=== PATIENT | male | born 1980 | race Asian ===

== ENCOUNTER 2017-08-19 14:42 | Emergency (ER) | payer OTHER ==
[2017-08-19 17:30] LABS: Basophils # (auto) 0 uL; Basophils % (auto) 0.7 % (0.0-2.0); Eosinophils # (auto) 0.2 uL; Eosinophils % (auto) 3.3 % (0.0-7.0); Hemoglobin 15.7 g/dL (13.5-17.5); Lymphocytes % (auto) 14.4 % (10.0-50.0); Mean Corpuscular Hemoglobin 31.5 pg (28.0-32.0); Mean Corpuscular Volume 92.5 fL (80.0-100.0); Monocytes # (auto) 0.3 uL; Monocytes % (auto) 4.9 % (0.0-12.0); Neutrophils # (auto) 5.1 uL; Neutrophils % (auto) 76.7 % (37.0-80.0); Platelet Count (auto) 187 10^3/uL (140-450); Red Blood Cells 4.97 10^6/uL (4.5-5.90); Red Cell Distribution Width 13.3 % (11.8-14.3); White Blood Cell 6.7 10^3/uL (4.4-10.8)
[2017-08-19 17:56] LABS: Anion Gap 6 (5-15); Blood Urea Nitrogen 29 mg/dL (7-18); Calcium 8.2 mg/dL (8.5-10.1); Carbon Dioxide 30 mmol/L (21-32); Chloride 105 mmol/L (98-107); GFR African American 67 mL/min; GFR Non-African American 55 mL/min; Glucose 120 mg/dL (74-106); Potassium 3.8 mmol/L (3.5-5.1); Sodium 141 mmol/L (136-145)
[2017-08-19 18:32] VITALS: BP 176/130
== END 2017-08-19 18:43 | disposition home or self-care (01) ==
LOC: ER 14:42
DX: R07.89 Other chest pain (principal); I10 Essential (primary) hypertension; T78.40XA Allergy, unspecified, initial encounter; X58.XXXA Exposure to other specified factors, initial encounter
CPT/HCPCS: 36415; 80048; 84484; 85025; 93005

== ENCOUNTER 2023-03-23 17:42 | Inpatient (IN) | payer OTHER, MEDICAID ==
[~2023-03-23] VITALS: Ht 170.2 cm; Wt 84.5 kg
[2023-03-24 00:45] LABS: Basophils # (auto) 0.1 10 ^3/uL (0-0.2); Basophils % (auto) 1.1 % (0.0-2.0); Eosinophils # (auto) 0.4 10 ^3/uL (0-0.8); Eosinophils % (auto) 4.7 % (0.0-7.0); Hematocrit 30.5 % (41.0-53.0); Hemoglobin 9.8 g/dL (13.5-17.5); Lymphocytes # (auto) 0.9 10 ^3/uL (0.4-5.4); Lymphocytes % (auto) 9.8 % (10.0-50.0); Mean Corpuscular Hemoglobin 31.3 pg (28.0-32.0); Mean Corpuscular Hgb Conc. 32.2 g/dL (32.0-36.0); Mean Corpuscular Volume 97.2 fL (80.0-100.0); Monocytes # (auto) 0.8 10 ^3/uL (0-1.3); Monocytes % (auto) 8.8 % (0.0-12.0); Neutrophils # (auto) 7.1 10 ^3/uL (1.6-8.6); Neutrophils % (auto) 75.6 % (37.0-80.0); Red Blood Cells 3.14 10^6/uL (4.5-5.90); Red Cell Distribution Width 16.6 % (11.8-14.3); White Blood Cell 9.4 10^3/uL (4.4-10.8)
[2023-03-24 01:06] LABS: Alanine Aminotransferase 22 U/L (7-40); Albumin 4.3 g/dL (3.2-4.8); Alkaline Phosphatase 87 U/L (46-116); Anion Gap 19.7 (5-15); Aspartate Aminotransferase 16 U/L (13-40); BUN/Creatinine Ratio 2.9 (10.0-20.0); Blood Urea Nitrogen 74 mg/dL (9-23); Calcium 8.7 mg/dL (8.7-10.4); Carbon Dioxide 20.3 mmol/L (20-30); Chloride 99 mmol/L (98-107); Glucose 113 mg/dL (74-106); Potassium 4.2 mmol/L (3.5-5.1); Sodium 139 mmol/L (136-145)
[2023-03-24 01:07] LABS: Bilirubin, Total < 0.2 mg/dL (0.2-1.0); Total Protein 6.7 g/dL (5.7-8.2)
[2023-03-24] MEDS ORDERED: NITROGLYCERIN 0.4 MG SL TAB SL PRN (03:00)
[2023-03-24] MEDS ORDERED: VANCOMYCIN 1GM/250ML 250 ML IV ONE (03:00)
[2023-03-24] MEDS ORDERED: MORPHINE SULFATE INJ 2 MG/ml SYRG IV PRN (03:00)
[2023-03-24] MEDS ORDERED: VANCOMYCIN PER PHARMACY 0 MG IV SCH (03:00)
[2023-03-24] MEDS ORDERED: PIPERACILLIN-TAZOB 3.375GM 100 ML IV ONE (03:00)
[2023-03-24] MEDS ORDERED: DOCUSATE SOD 100 MG CAP PO PRN (03:00)
[2023-03-24] MEDS ORDERED: cefTRIAXone 1GM/50ML D5W 50 ML IV SCH (04:00)
[2023-03-24 07:01] LABS: Basophils # (auto) 0.1 10 ^3/uL (0-0.2); Basophils % (auto) 0.9 % (0.0-2.0); Eosinophils # (auto) 0.4 10 ^3/uL (0-0.8); Eosinophils % (auto) 4.9 % (0.0-7.0); Hematocrit 27.2 % (41.0-53.0); Hemoglobin 8.8 g/dL (13.5-17.5); Lymphocytes # (auto) 0.8 10 ^3/uL (0.4-5.4); Lymphocytes % (auto) 9.3 % (10.0-50.0); Mean Corpuscular Hemoglobin 31.1 pg (28.0-32.0); Mean Corpuscular Hgb Conc. 32.5 g/dL (32.0-36.0); Mean Corpuscular Volume 95.9 fL (80.0-100.0); Monocytes # (auto) 0.8 10 ^3/uL (0-1.3); Monocytes % (auto) 9.1 % (0.0-12.0); Neutrophils # (auto) 6.4 10 ^3/uL (1.6-8.6); Neutrophils % (auto) 75.8 % (37.0-80.0); Red Blood Cells 2.83 10^6/uL (4.5-5.90); Red Cell Distribution Width 15.8 % (11.8-14.3); White Blood Cell 8.5 10^3/uL (4.4-10.8)
[2023-03-24 07:08] LABS: Alanine Aminotransferase 19 U/L (7-40); Alkaline Phosphatase 80 U/L (46-116); Anion Gap 20.2 (5-15); BUN/Creatinine Ratio 2.9 (10.0-20.0); Blood Urea Nitrogen 76 mg/dL (9-23); Calcium 8.3 mg/dL (8.7-10.4); Carbon Dioxide 19.8 mmol/L (20-30); Chloride 98 mmol/L (98-107); Glucose 136 mg/dL (74-106); Potassium 4.3 mmol/L (3.5-5.1); Sodium 138 mmol/L (136-145)
[2023-03-24 07:09] LABS: Albumin 3.6 g/dL (3.2-4.8); Aspartate Aminotransferase 13 U/L (13-40); Bilirubin, Total < 0.2 mg/dL (0.2-1.0); Total Protein 5.7 g/dL (5.7-8.2)
[2023-03-24] MEDS: SODIUM CHLOR 0.9% PF (SALINE LOCK) 10ML VIAL/SYR IV SCH ×3 (08:37→22:52)
[2023-03-24] MEDS: hydrALAZINE HCL 20 MG/ML VL IV PRN ×3 (08:37→21:14)
[2023-03-24 09:00] VITALS: PULSE 95; RESP 17; O2SAT 96
[2023-03-24] MEDS ORDERED: FAMOTIDINE (10MG/ML) 2ML VL IV SCH (10:00)
[2023-03-24] MEDS: B-COMPLEX W/ C & FOLIC ACID(NEPHROVITE TAB) PO SCH (10:36)
[2023-03-24] MEDS: ASPirin 81 mg TAB PO SCH (10:36)
[2023-03-24] MEDS: NIFEdipine ER 30 MG TAB PO SCH (18:56)
[2023-03-24] MEDS ORDERED: amLODIPine BESYLATE 5 MG TAB PO SCH (22:15)
[2023-03-24] MEDS: LACTULOSE 20Gm/30ML SOLN PO SCH (22:51)
[2023-03-24] MEDS: ONDANSETRON HCL 4 MG/2 ML VIAL IV PRN (22:51)
[2023-03-24] MEDS: CARVEDILOL 3.125 MG TAB PO SCH (22:52)
[2023-03-24 23:30] VITALS: BP 199/121; PULSE 103; RESP 17; O2SAT 94
[2023-03-24] MEDS: ACETAMINOPHEN 325 MG TAB PO PRN (23:49)
[2023-03-25] VITALS (24 sets, daily range): BP systolic 150–190; BP diastolic 22–113; PULSE 88–113; RESP 11–25; TEMP 97.5–99.2; O2SAT 76–98
[2023-03-25] MEDS: PERITONEAL DIALYSIS 2.5% SOLN 2,000 ML IP SCH ×3 (01:28→15:33)
[2023-03-25 05:29] LABS: Alanine Aminotransferase 14 U/L (7-40); Alkaline Phosphatase 69 U/L (46-116); Anion Gap 20.1 (5-15); Aspartate Aminotransferase 9 U/L (13-40); BUN/Creatinine Ratio 3.2 (10.0-20.0); Calcium 8.4 mg/dL (8.7-10.4); Carbon Dioxide 18.9 mmol/L (20-30); Chloride 97 mmol/L (98-107); Glucose 132 mg/dL (74-106); Potassium 4.3 mmol/L (3.5-5.1); Sodium 136 mmol/L (136-145)
[2023-03-25 05:30] LABS: Albumin 3.7 g/dL (3.2-4.8)
[2023-03-25 05:31] LABS: Bilirubin, Total < 0.2 mg/dL (0.2-1.0); Total Protein 5.9 g/dL (5.7-8.2)
[2023-03-25 05:46] LABS: Basophils # (auto) 0.1 10 ^3/uL (0-0.2); Basophils % (auto) 1.2 % (0.0-2.0); Eosinophils # (auto) 0.4 10 ^3/uL (0-0.8); Eosinophils % (auto) 4.9 % (0.0-7.0); Hematocrit 28.7 % (41.0-53.0); Hemoglobin 9.2 g/dL (13.5-17.5); Lymphocytes # (auto) 0.8 10 ^3/uL (0.4-5.4); Lymphocytes % (auto) 9.5 % (10.0-50.0); Mean Corpuscular Hemoglobin 30.9 pg (28.0-32.0); Mean Corpuscular Hgb Conc. 32.2 g/dL (32.0-36.0); Mean Corpuscular Volume 95.8 fL (80.0-100.0); Monocytes # (auto) 0.9 10 ^3/uL (0-1.3); Neutrophils # (auto) 6.3 10 ^3/uL (1.6-8.6); Neutrophils % (auto) 73.4 % (37.0-80.0); Red Blood Cells 2.99 10^6/uL (4.5-5.90); Red Cell Distribution Width 16.1 % (11.8-14.3); White Blood Cell 8.6 10^3/uL (4.4-10.8)
[2023-03-25 07:53] LABS: Blood Urea Nitrogen 84 mg/dL (9-23)
[2023-03-25] MEDS: cefTRIAXone 1GM/50ML D5W 50 ML IV SCH (09:33)
[2023-03-25] MEDS: LACTULOSE 20Gm/30ML SOLN PO SCH ×3 (10:00→21:18)
[2023-03-25] MEDS: B-COMPLEX W/ C & FOLIC ACID(NEPHROVITE TAB) PO SCH (10:25)
[2023-03-25] MEDS: FAMOTIDINE (10MG/ML) 2ML VL IV SCH (10:25)
[2023-03-25] MEDS: SODIUM CHLOR 0.9% PF (SALINE LOCK) 10ML VIAL/SYR IV SCH ×2 (10:26→21:19)
[2023-03-25] MEDS: ASPirin 81 mg TAB PO SCH (10:26)
[2023-03-25] MEDS: CARVEDILOL 3.125 MG TAB PO SCH ×2 (10:26→21:19)
[2023-03-25] MEDS: NIFEdipine ER 30 MG TAB PO SCH (10:26)
[2023-03-25] MEDS: ONDANSETRON HCL 4 MG/2 ML VIAL IV PRN ×3 (11:03→22:57)
[2023-03-25] MEDS: HYDROcodone-ACET 5/325MG TAB PO PRN (11:07)
[2023-03-25] MEDS ORDERED: VANCOMYCIN 500 MG in D5W 5% 100 ML IV ONE (13:00)
[2023-03-25] MEDS: hydrALAZINE HCL 20 MG/ML VL IV PRN ×2 (18:13→21:16)
[2023-03-26] VITALS (24 sets, daily range): BP systolic 74–208; BP diastolic 51–128; PULSE 84–109; RESP 10–26; TEMP 97.4–98.2; O2SAT 90–98
[2023-03-26] MEDS: ACETAMINOPHEN 325 MG TAB PO PRN ×2 (00:38→14:58)
[2023-03-26] MEDS: PERITONEAL DIALYSIS 2.5% SOLN 2,000 ML IP SCH ×4 (00:47→23:06)
[2023-03-26] MEDS: cloNIDine HCL 0.1 MG TAB PO PRN ×2 (02:28→15:12)
[2023-03-26] MEDS: hydrALAZINE HCL 20 MG/ML VL IV PRN ×2 (03:08→18:16)
[2023-03-26] MEDS: SODIUM CHLOR 0.9% PF (SALINE LOCK) 10ML VIAL/SYR IV SCH ×3 (06:27→21:14)
[2023-03-26] MEDS: cefTRIAXone 1GM/50ML D5W 50 ML IV SCH (08:15)
[2023-03-26] MEDS: LACTULOSE 20Gm/30ML SOLN PO SCH ×2 (09:19→21:12)
[2023-03-26] MEDS: ASPirin 81 mg TAB PO SCH (09:19)
[2023-03-26] MEDS: B-COMPLEX W/ C & FOLIC ACID(NEPHROVITE TAB) PO SCH (09:19)
[2023-03-26] MEDS: NIFEdipine ER 30 MG TAB PO SCH ×2 (09:20→13:35)
[2023-03-26] MEDS: CARVEDILOL 3.125 MG TAB PO SCH ×2 (09:20→21:14)
[2023-03-26] MEDS: ONDANSETRON HCL 4 MG/2 ML VIAL IV PRN ×2 (10:47→14:58)
[2023-03-26] MEDS: HYDROcodone-ACET 5/325MG TAB PO PRN ×2 (17:03→21:13)
[2023-03-27] VITALS (7 sets, daily range): BP systolic 137–167; BP diastolic 87–114; PULSE 96–112; RESP 15–18; TEMP 98–98.7; O2SAT 92–100
[2023-03-27] MEDS: PERITONEAL DIALYSIS 2.5% SOLN 2,000 ML IP SCH ×4 (04:56→21:03)
[2023-03-27] MEDS: B-COMPLEX W/ C & FOLIC ACID(NEPHROVITE TAB) PO SCH (08:21)
[2023-03-27] MEDS: HYDROcodone-ACET 5/325MG TAB PO PRN (08:21)
[2023-03-27] MEDS: NIFEdipine ER 30 MG TAB PO SCH (08:22)
[2023-03-27] MEDS: CARVEDILOL 3.125 MG TAB PO SCH ×2 (08:22→22:39)
[2023-03-27] MEDS: ASPirin 81 mg TAB PO SCH (08:22)
[2023-03-27] MEDS: FAMOTIDINE (10MG/ML) 2ML VL IV SCH (08:23)
[2023-03-27] MEDS: cefTRIAXone 1GM/50ML D5W 50 ML IV SCH (08:23)
[2023-03-27] MEDS: ONDANSETRON HCL 4 MG/2 ML VIAL IV PRN (08:23)
[2023-03-27] MEDS: LACTULOSE 20Gm/30ML SOLN PO SCH ×2 (10:00→22:36)
[2023-03-27] MEDS ORDERED: PROPOFOL 10 MG/ML 20 ML IV ONE ×3 (10:16→12:57)
[2023-03-27 10:38] LABS: Basophils # (auto) 0.1 10 ^3/uL (0-0.2); Basophils % (auto) 1.4 % (0.0-2.0); Eosinophils # (auto) 0.3 10 ^3/uL (0-0.8); Eosinophils % (auto) 5.3 % (0.0-7.0); Hematocrit 29.6 % (41.0-53.0); Hemoglobin 9.7 g/dL (13.5-17.5); Lymphocytes # (auto) 0.8 10 ^3/uL (0.4-5.4); Lymphocytes % (auto) 13.9 % (10.0-50.0); Mean Corpuscular Hemoglobin 31.3 pg (28.0-32.0); Mean Corpuscular Hgb Conc. 32.7 g/dL (32.0-36.0); Mean Corpuscular Volume 95.7 fL (80.0-100.0); Monocytes # (auto) 0.6 10 ^3/uL (0-1.3); Monocytes % (auto) 10.5 % (0.0-12.0); Neutrophils # (auto) 4.2 10 ^3/uL (1.6-8.6); Neutrophils % (auto) 68.9 % (37.0-80.0); Nucleated Red Blood Cells % 0.1 %; Red Blood Cells 3.09 10^6/uL (4.5-5.90); Red Cell Distribution Width 15.9 % (11.8-14.3); White Blood Cell 6.1 10^3/uL (4.4-10.8)
[2023-03-27 10:56] LABS: Alanine Aminotransferase 22 U/L (7-40); Albumin 3.6 g/dL (3.2-4.8); Alkaline Phosphatase 70 U/L (46-116); Anion Gap 17.3 (5-15); Aspartate Aminotransferase 14 U/L (13-40); BUN/Creatinine Ratio 3.2 (10.0-20.0); Calcium 8.7 mg/dL (8.5-10.1); Carbon Dioxide 21.7 mmol/L (20-30); Chloride 97 mmol/L (98-107); Glucose 141 mg/dL (74-106); Potassium 3.8 mmol/L (3.5-5.1); Sodium 136 mmol/L (136-145)
[2023-03-27 10:57] LABS: Bilirubin, Total < 0.2 mg/dL (0.2-1.0); Total Protein 5.6 g/dL (5.7-8.2)
[2023-03-27 11:07] LABS: Blood Urea Nitrogen 80 mg/dL (9-23)
[2023-03-27 11:43] LABS: INR 0.98 (0.9-1.15); Partial Thromboplastin Time 28.6 SEC (24.5-34.5); Prothrombin Time 10.3 sec (9.3-11.8)
[2023-03-27] MEDS ORDERED: MIDAZOLAM HCL 2MG/2ML 2ml VIAL (1mg/ml) ONE (12:08)
[2023-03-27] MEDS ORDERED: fentaNYL CITRATE 100 MCG/2 ML VL ONE (12:08)
[2023-03-27] MEDS ORDERED: ONDANSETRON HCL 4 MG/2 ML VIAL ONE (12:11)
[2023-03-27] MEDS ORDERED: LIDOCAINE 2% (LOCAL ANESTH.) PF 5ml SDV ONE (12:11)
[2023-03-27] MEDS ORDERED: ceFAZolin 1GM VL ONE (12:44)
[2023-03-27] MEDS ORDERED: HYDROmorphone HCL 2 MG/ML VL/or syr IV PRN (13:30)
[2023-03-27] MEDS ORDERED: ONDANSETRON HCL 4 MG/2 ML VIAL IV PRN (13:30)
[2023-03-27] MEDS: SODIUM CHLOR 0.9% PF (SALINE LOCK) 10ML VIAL/SYR IV SCH ×2 (14:00→22:00)
[2023-03-27] MEDS: cloNIDine HCL 0.1 MG TAB PO PRN (15:58)
[2023-03-27] MEDS: hydrALAZINE HCL 20 MG/ML VL IV PRN ×2 (17:41→18:06)
[2023-03-28] VITALS (8 sets, daily range): BP systolic 131–157; BP diastolic 80–105; PULSE 76–113; RESP 16–21; TEMP 97.5–98.5; O2SAT 92–95
[2023-03-28] MEDS: PERITONEAL DIALYSIS 2.5% SOLN 2,000 ML IP SCH ×4 (03:04→21:43)
[2023-03-28] MEDS: SODIUM CHLOR 0.9% PF (SALINE LOCK) 10ML VIAL/SYR IV SCH ×3 (06:07→21:50)
[2023-03-28] MEDS: cefTRIAXone 1GM/50ML D5W 50 ML IV SCH (09:10)
[2023-03-28] MEDS: LACTULOSE 20Gm/30ML SOLN PO SCH ×2 (09:15→22:00)
[2023-03-28] MEDS: ASPirin 81 mg TAB PO SCH (09:15)
[2023-03-28] MEDS: B-COMPLEX W/ C & FOLIC ACID(NEPHROVITE TAB) PO SCH (09:15)
[2023-03-28] MEDS: NIFEdipine ER 30 MG TAB PO SCH (09:16)
[2023-03-28] MEDS: CARVEDILOL 3.125 MG TAB PO SCH ×2 (09:16→21:54)
[2023-03-28] MEDS: hydrALAZINE HCL 20 MG/ML VL IV PRN (12:12)
[2023-03-29] MEDS: PERITONEAL DIALYSIS 2.5% SOLN 2,000 ML IP SCH ×4 (04:55→23:05)
[2023-03-29] MEDS: hydrALAZINE HCL 20 MG/ML VL IV PRN ×2 (05:31→12:29)
[2023-03-29] MEDS: SODIUM CHLOR 0.9% PF (SALINE LOCK) 10ML VIAL/SYR IV SCH ×3 (05:35→22:00)
[2023-03-29 08:00] VITALS: PULSE 110; PULSE 114; RESP 20; O2SAT 98
[2023-03-29 09:00] VITALS: BP 154/116; PULSE 114; RESP 20; TEMP 98.7; O2SAT 98
[2023-03-29] MEDS: cefTRIAXone 1GM/50ML D5W 50 ML IV SCH (09:03)
[2023-03-29] MEDS: FAMOTIDINE (10MG/ML) 2ML VL IV SCH (09:06)
[2023-03-29] MEDS: NIFEdipine ER 30 MG TAB PO SCH (09:08)
[2023-03-29] MEDS: ASPirin 81 mg TAB PO SCH (09:09)
[2023-03-29] MEDS: CARVEDILOL 3.125 MG TAB PO SCH ×2 (09:10→22:39)
[2023-03-29] MEDS: LACTULOSE 20Gm/30ML SOLN PO SCH ×2 (09:10→22:38)
[2023-03-29] MEDS: B-COMPLEX W/ C & FOLIC ACID(NEPHROVITE TAB) PO SCH (09:10)
[2023-03-29] MEDS: cloNIDine HCL 0.1 MG TAB PO PRN (11:00)
[2023-03-29 13:00] VITALS: BP 176/129; PULSE 101; RESP 20; TEMP 97.5; O2SAT 97
[2023-03-29 16:45] VITALS: BP 111/87; PULSE 108; RESP 20; TEMP 98.8; O2SAT 96
[2023-03-29 20:00] VITALS: PULSE 122; PULSE 97; RESP 14; O2SAT 95
[2023-03-29 22:00] VITALS: BP 156/109; PULSE 97; RESP 14; TEMP 98; O2SAT 95
[2023-03-29] MEDS ORDERED: VANCOMYCIN 500 MG in D5W 5% 100 ML IV ONE (22:00)
[2023-03-30] MEDS: cloNIDine HCL 0.1 MG TAB PO PRN ×2 (00:26→12:18)
[2023-03-30] MEDS: PERITONEAL DIALYSIS 2.5% SOLN 2,000 ML IP SCH ×2 (04:53→11:00)
[2023-03-30 05:00] VITALS: BP 138/104; PULSE 101; RESP 14; TEMP 98.1; O2SAT 97
[2023-03-30] MEDS: SODIUM CHLOR 0.9% PF (SALINE LOCK) 10ML VIAL/SYR IV SCH ×2 (06:00→15:50)
[2023-03-30 07:25] LABS: Basophils # (auto) 0.1 10 ^3/uL (0-0.2); Basophils % (auto) 1.4 % (0.0-2.0); Eosinophils # (auto) 0.3 10 ^3/uL (0-0.8); Eosinophils % (auto) 6.1 % (0.0-7.0); Hematocrit 31.7 % (41.0-53.0); Hemoglobin 10.4 g/dL (13.5-17.5); Lymphocytes # (auto) 0.9 10 ^3/uL (0.4-5.4); Lymphocytes % (auto) 15.4 % (10.0-50.0); Mean Corpuscular Hgb Conc. 32.9 g/dL (32.0-36.0); Mean Corpuscular Volume 94.4 fL (80.0-100.0); Monocytes # (auto) 0.7 10 ^3/uL (0-1.3); Monocytes % (auto) 12.4 % (0.0-12.0); Neutrophils # (auto) 3.6 10 ^3/uL (1.6-8.6); Neutrophils % (auto) 64.7 % (37.0-80.0); Red Blood Cells 3.36 10^6/uL (4.5-5.90); White Blood Cell 5.5 10^3/uL (4.4-10.8)
[2023-03-30 08:00] VITALS: PULSE 108
[2023-03-30 08:01] LABS: Chloride 93 mmol/L (98-107); Sodium 132 mmol/L (136-145)
[2023-03-30 08:02] LABS: Anion Gap 16.8 (5-15); Calcium 8.9 mg/dL (8.7-10.4); Carbon Dioxide 22.2 mmol/L (20-30)
[2023-03-30 08:07] LABS: BUN/Creatinine Ratio 3.5 (10.0-20.0); Blood Urea Nitrogen 78 mg/dL (9-23); Glucose 120 mg/dL (74-106)
[2023-03-30] MEDS: ASPirin 81 mg TAB PO SCH (08:50)
[2023-03-30] MEDS: B-COMPLEX W/ C & FOLIC ACID(NEPHROVITE TAB) PO SCH (08:51)
[2023-03-30] MEDS: NIFEdipine ER 30 MG TAB PO SCH (08:51)
[2023-03-30] MEDS: CARVEDILOL 3.125 MG TAB PO SCH (08:58)
[2023-03-30] MEDS: LACTULOSE 20Gm/30ML SOLN PO SCH (08:58)
[2023-03-30 09:00] VITALS: BP 145/103; PULSE 108; RESP 18; TEMP 98.5; O2SAT 98
[2023-03-30] MEDS: cefTRIAXone 1GM/50ML D5W 50 ML IV SCH (09:13)
[2023-03-30] MEDS ORDERED: HYDR-4902 PO (10:56)
[2023-03-30] MEDS ORDERED: CLIN300C70 PO (10:56)
[2023-03-30 14:33] VITALS: BP 145/103; PULSE 108; RESP 18; TEMP 98.5; O2SAT 98
== END 2023-03-30 16:31 | disposition home or self-care (01) | DRG 393 ==
LOC: ER 17:42 → TELE 03-24 03:03 → DOU IN ICU 03-24 23:21 → TELE-WESTW 03-26 14:46
PROVIDERS: ADMIT Nurse Practitioner Family; ATTEND Family Medicine
PROC: 0Y910ZZ Drainage of Left Buttock, Open Approach (ICD-10-PCS; principal; 2023-03-27 12:12)
DX: K61.2 Anorectal abscess (principal); N18.6 End stage renal disease; L03.317 Cellulitis of buttock; I31.39 Other pericardial effusion (noninflammatory); L02.215 Cutaneous abscess of perineum; I12.0 Hypertensive chronic kidney disease with stage 5 chronic kidney disease or end stage renal disease; L02.31 Cutaneous abscess of buttock; D63.1 Anemia in chronic kidney disease; E11.22 Type 2 diabetes mellitus with diabetic chronic kidney disease; N28.1 Cyst of kidney, acquired; B95.62 Methicillin resistant Staphylococcus aureus infection as the cause of diseases classified elsewhere; K59.00 Constipation, unspecified; I25.10 Atherosclerotic heart disease of native coronary artery without angina pectoris; Z86.14 Personal history of Methicillin resistant Staphylococcus aureus infection; Z88.8 Allergy status to other drugs, medicaments and biological substances; Z99.2 Dependence on renal dialysis
CPT/HCPCS: 36415; 74176; 76775; 76856; 80048; 80053; 80202; 85025; 85610; 85730; 86850; 86900; 86901; 87070; 87075; 87076; 87077; 87081; 87186; 87205; 93005; 96365; 96367; 96375; G0378; J0690; J0696; J2001; J2250; J2405; J2704; J3490; J7060

== ENCOUNTER 2023-04-01 13:34 | Emergency (ER) | payer OTHER, MEDICAID ==
[~2023-04-01] VITALS: Ht 170.2 cm; Wt 75.2 kg
[~2023-04-01 13:34] MED LIST: CLIN300C70 PO; HYDR-4902 PO
[2023-04-01 14:06] VITALS: BP 173/141; PULSE 101; RESP 18; O2SAT 96
[2023-04-01 14:55] LABS: Basophils # (auto) 0.1 10 ^3/uL (0-0.2); Basophils % (auto) 1.2 % (0.0-2.0); Eosinophils # (auto) 0.4 10 ^3/uL (0-0.8); Eosinophils % (auto) 5.4 % (0.0-7.0); Hematocrit 29.4 % (41.0-53.0); Hemoglobin 9.5 g/dL (13.5-17.5); Lymphocytes # (auto) 0.9 10 ^3/uL (0.4-5.4); Lymphocytes % (auto) 13.4 % (10.0-50.0); Mean Corpuscular Hemoglobin 30.4 pg (28.0-32.0); Mean Corpuscular Hgb Conc. 32.4 g/dL (32.0-36.0); Mean Corpuscular Volume 93.8 fL (80.0-100.0); Monocytes # (auto) 0.7 10 ^3/uL (0-1.3); Monocytes % (auto) 10.1 % (0.0-12.0); Neutrophils # (auto) 4.6 10 ^3/uL (1.6-8.6); Neutrophils % (auto) 69.9 % (37.0-80.0); Red Blood Cells 3.14 10^6/uL (4.5-5.90); Red Cell Distribution Width 15.8 % (11.8-14.3); White Blood Cell 6.6 10^3/uL (4.4-10.8)
[2023-04-01 15:17] LABS: Alanine Aminotransferase 31 U/L (7-40); Albumin 3.8 g/dL (3.2-4.8); Alkaline Phosphatase 79 U/L (46-116); Anion Gap 17.2 (5-15); Aspartate Aminotransferase 20 U/L (13-40); BUN/Creatinine Ratio 4.6 (10.0-20.0); Bilirubin, Total < 0.2 mg/dL (0.2-1.0); Calcium 8.7 mg/dL (8.5-10.1); Carbon Dioxide 22.8 mmol/L (20-30); Chloride 96 mmol/L (98-107); Glucose 112 mg/dL (74-106); Potassium 4.4 mmol/L (3.5-5.1); Sodium 136 mmol/L (136-145)
[2023-04-01 15:29] LABS: Blood Urea Nitrogen 100 mg/dL (9-23)
== END 2023-04-01 16:41 | disposition left against medical advice (07) ==
LOC: ER 13:34
DX: N18.6 End stage renal disease (principal); Z88.6 Allergy status to analgesic agent
CPT/HCPCS: 36415; 80053; 84484; 85025; 93005

== ENCOUNTER 2023-05-23 12:07 | Inpatient (IN) | payer OTHER, MEDICAID ==
[~2023-05-23] VITALS: Ht 170.2 cm; Wt 86.9 kg
[2023-05-23 17:38] LABS: Basophils # (auto) 0.1 10 ^3/uL (0-0.2); Hemoglobin 7.3 g/dL (13.5-17.5); Lymphocytes # (auto) 0.8 10 ^3/uL (0.4-5.4); Lymphocytes % (auto) 15.4 % (10.0-50.0); Mean Corpuscular Hemoglobin 30.9 pg (28.0-32.0); Mean Corpuscular Hgb Conc. 33.1 g/dL (32.0-36.0); Neutrophils # (auto) 3.4 10 ^3/uL (1.6-8.6); White Blood Cell 5.5 10^3/uL (4.4-10.8)
[2023-05-23 17:39] LABS: Eosinophils # (auto) 0.7 10 ^3/uL (0-0.8); Eosinophils % (auto) 12.7 % (0.0-7.0); Mean Corpuscular Volume 93.5 fL (80.0-100.0); Monocytes # (auto) 0.5 10 ^3/uL (0-1.3); Monocytes % (auto) 8.6 % (0.0-12.0); Neutrophils % (auto) 62.3 % (37.0-80.0); Nucleated Red Blood Cells % 0.1 %; Red Blood Cells 2.36 10^6/uL (4.5-5.90); Red Cell Distribution Width 17.2 % (11.8-14.3)
[2023-05-23 17:47] LABS: Alanine Aminotransferase 23 U/L (7-40); Albumin 4.1 g/dL (3.2-4.8); Alkaline Phosphatase 78 U/L (46-116); Anion Gap 18 (5-15); Aspartate Aminotransferase 21 U/L (13-40); BUN/Creatinine Ratio 3.7 (10.0-20.0); Bilirubin, Total 0.2 mg/dL (0.2-1.0); Calcium 8.8 mg/dL (8.5-10.1); Carbon Dioxide 22 mmol/L (20-30); Chloride 100 mmol/L (98-107); Glucose 93 mg/dL (74-106); Potassium 3.3 mmol/L (3.5-5.1); Sodium 140 mmol/L (136-145)
[2023-05-23 17:48] LABS: Total Protein 6.4 g/dL (5.7-8.2)
[2023-05-23 18:05] LABS: Blood Urea Nitrogen 82 mg/dL (9-23)
[2023-05-23] MEDS ORDERED: SODIUM CHLORIDE 0.9% 500 ML IV ONE (18:45)
[2023-05-23 20:00] LABS: Magnesium 2.5 mg/dL (1.6-2.6)
[2023-05-23 21:52] VITALS: PULSE 99; RESP 20; O2SAT 90
[2023-05-23] MEDS ORDERED: ACETAMINOPHEN 325 MG TAB PO PRN (22:00)
[2023-05-23] MEDS ORDERED: TEMAZEPAM 15 MG CAP PO PRN (22:00)
[2023-05-23] MEDS ORDERED: NITROGLYCERIN 0.4 MG SL TAB SL PRN (22:00)
[2023-05-23] MEDS ORDERED: MORPHINE SULFATE INJ 2 MG/ml SYRG IV PRN (22:00)
[2023-05-23] MEDS: CARVEDILOL 12.5 MG TAB PO SCH (22:00)
[2023-05-23] MEDS: ATORVASTATIN 20 MG TAB PO SCH (23:17)
[2023-05-24] VITALS (7 sets, daily range): BP systolic 185–200; BP diastolic 82–126; PULSE 89–95; RESP 18–20; TEMP 97.9–98.3; O2SAT 96–99
[2023-05-24] MEDS: hydrALAZINE HCL 20 MG/ML VL IV PRN ×2 (02:43→07:54)
[2023-05-24] MEDS ORDERED: dilTIAZem 25 MG/5 ML VIAL IV ONE (04:45)
[2023-05-24 05:55] LABS: Basophils # (auto) 0 10 ^3/uL (0-0.2); Lymphocytes # (auto) 0.8 10 ^3/uL (0.4-5.4); Monocytes # (auto) 0.5 10 ^3/uL (0-1.3)
[2023-05-24 05:59] LABS: Basophils % (auto) 0.7 % (0.0-2.0); Eosinophils # (auto) 0.7 10 ^3/uL (0-0.8); Eosinophils % (auto) 11.8 % (0.0-7.0); Hematocrit 20.1 % (41.0-53.0); Lymphocytes % (auto) 12.7 % (10.0-50.0); Mean Corpuscular Hemoglobin 31.6 pg (28.0-32.0); Mean Corpuscular Hgb Conc. 33.8 g/dL (32.0-36.0); Mean Corpuscular Volume 93.6 fL (80.0-100.0); Monocytes % (auto) 7.7 % (0.0-12.0); Neutrophils # (auto) 4.2 10 ^3/uL (1.6-8.6); Neutrophils % (auto) 67.1 % (37.0-80.0); Red Blood Cells 2.15 10^6/uL (4.5-5.90); Red Cell Distribution Width 16.8 % (11.8-14.3); White Blood Cell 6.2 10^3/uL (4.4-10.8)
[2023-05-24 06:03] LABS: Alanine Aminotransferase 20 U/L (7-40); Albumin 3.6 g/dL (3.2-4.8); Alkaline Phosphatase 71 U/L (46-116); Anion Gap 22 (5-15); Aspartate Aminotransferase 17 U/L (13-40); BUN/Creatinine Ratio 3.7 (10.0-20.0); Bilirubin, Total 0.2 mg/dL (0.2-1.0); Calcium 8.2 mg/dL (8.7-10.4); Carbon Dioxide 19 mmol/L (20-30); Chloride 99 mmol/L (98-107); Glucose 81 mg/dL (74-106); Sodium 140 mmol/L (136-145); Total Protein 5.7 g/dL (5.7-8.2)
[2023-05-24 06:28] LABS: Blood Urea Nitrogen 87 mg/dL (9-23)
[2023-05-24 07:05] LABS: Hemoglobin 6.8 g/dL (13.5-17.5)
[2023-05-24] MEDS: ONDANSETRON HCL 4 MG/2 ML VIAL IV PRN (07:53)
[2023-05-24 08:12] LABS: INR 0.98 (0.9-1.15); Partial Thromboplastin Time 27.1 SEC (24.5-34.5); Prothrombin Time 10.3 sec (9.3-11.8)
[2023-05-24] MEDS ORDERED: LIDOCAINE 2% JELLY 11ml (GLYDO) UR ONE (08:15)
[2023-05-24] MEDS: SEVELAMER 800 MG TAB PO SCH ×3 (08:29→23:06)
[2023-05-24] MEDS: CARVEDILOL 12.5 MG TAB PO SCH (10:00)
[2023-05-24] MEDS ORDERED: NIFEdipine ER 30 MG TAB PO SCH (10:00)
[2023-05-24 11:54] LABS: Urine Bacteria FEW /hpf (None Seen); Urine Blood 3+ /uL (Negative); Urine Clarity HAZY (Clear); Urine Color Straw (Yellow); Urine Protein, UAD 3+ (Negative); Urine Specific Gravity 1.012 (1.001-1.035); Urine Urobilinogen Normal (Negative); Urine WBC 123 /hpf (0 - 3); Urine pH 6.5 (5.0-8.0)
[2023-05-24] MEDS: cloNIDine HCL 0.1 MG TAB PO PRN (12:14)
[2023-05-24] MEDS: NIFEdipine ER 30 MG TAB PO SCH (13:52)
[2023-05-24] MEDS: hydrALAZINE HCL 10 MG TAB PO SCH ×2 (14:00→23:06)
[2023-05-24] MEDS: ATORVASTATIN 20 MG TAB PO SCH (23:05)
[2023-05-25] MEDS: hydrALAZINE HCL 20 MG/ML VL IV PRN (03:38)
[2023-05-25 05:41] VITALS: PULSE 97; RESP 20; O2SAT 94
[2023-05-25 05:42] VITALS: BP 163/91; PULSE 82; TEMP 98.6
[2023-05-25 05:50] LABS: Rapid Influenza A Negative (Negative); Rapid Influenza B Negative (Negative)
[2023-05-25] MEDS: hydrALAZINE HCL 10 MG TAB PO SCH (05:59)
[2023-05-25] MEDS: SEVELAMER 800 MG TAB PO SCH ×4 (08:00→18:07)
[2023-05-25 08:30] VITALS: PULSE 106; PULSE 98; RESP 18; O2SAT 98
[2023-05-25] MEDS ORDERED: SENN-105 PO (08:30)
[2023-05-25] MEDS ORDERED: SEVE800T10 PO (08:30)
[2023-05-25] MEDS ORDERED: FLUT50SP NAS (08:30)
[2023-05-25] MEDS ORDERED: LANT10002 PO (08:30)
[2023-05-25] MEDS ORDERED: COLC1CAP (08:30)
[2023-05-25] MEDS ORDERED: LOSA50TA46 PO (08:30)
[2023-05-25 09:04] LABS: Hepatitis B Surface Antigen Negative (Negative)
[2023-05-25 09:25] LABS: Hepatitis C Antibody Negative (Negative)
[2023-05-25] MEDS ORDERED: BUMETANIDE 2.5mg/10ml (0.25 mg/ml) INJ IV ONE (10:00)
[2023-05-25] MEDS ORDERED: NIFEdipine ER 30 MG TAB PO SCH (10:00)
[2023-05-25] MEDS ORDERED: hydrALAZINE HCL 25 MG TAB PO ONE (10:15)
[2023-05-25] MEDS: LOSARTAN POTASSIUM 50 MG TAB PO SCH (10:57)
[2023-05-25] MEDS: NIFEdipine ER 30 MG TAB PO SCH (10:59)
[2023-05-25 12:43] VITALS: BP 176/106; PULSE 100; RESP 20; TEMP 98.3; O2SAT 92
[2023-05-25] MEDS ORDERED: POTASSIUM CHL 20 Meq TABLET PO ONE (12:45)
[2023-05-25] MEDS: PERITONEAL DIALYSIS 2.5% SOLN 2,000 ML IP SCH ×2 (16:45→17:43)
[2023-05-25 20:00] VITALS: PULSE 95; PULSE 96; RESP 18; O2SAT 98
[2023-05-25] MEDS: ATORVASTATIN 20 MG TAB PO SCH (21:42)
[2023-05-25] MEDS: LACTULOSE 20Gm/30ML SOLN PO SCH (21:42)
[2023-05-25] MEDS: cloNIDine HCL 0.1 MG TAB PO PRN (21:44)
[2023-05-25] MEDS: hydrALAZINE HCL 25 MG TAB PO SCH (21:45)
[2023-05-25 22:00] VITALS: BP 179/100; PULSE 95; RESP 18; TEMP 98.3; O2SAT 97
[2023-05-26] VITALS (7 sets, daily range): BP systolic 111–173; BP diastolic 61–99; PULSE 84–106; RESP 16–20; TEMP 97.5–98.8; O2SAT 92–98
[2023-05-26 00:47] LABS: Basophils # (auto) 0 10 ^3/uL (0-0.2); Eosinophils % (auto) 14.2 % (0.0-7.0); Hemoglobin 7.6 g/dL (13.5-17.5); Lymphocytes # (auto) 0.6 10 ^3/uL (0.4-5.4)
[2023-05-26 00:49] LABS: Basophils % (auto) 0.7 % (0.0-2.0); Eosinophils # (auto) 0.7 10 ^3/uL (0-0.8); Hematocrit 22.6 % (41.0-53.0); Lymphocytes % (auto) 11.8 % (10.0-50.0); Mean Corpuscular Hemoglobin 30.8 pg (28.0-32.0); Mean Corpuscular Hgb Conc. 33.7 g/dL (32.0-36.0); Mean Corpuscular Volume 91.3 fL (80.0-100.0); Monocytes # (auto) 0.4 10 ^3/uL (0-1.3); Monocytes % (auto) 8.2 % (0.0-12.0); Neutrophils # (auto) 3.4 10 ^3/uL (1.6-8.6); Neutrophils % (auto) 65.1 % (37.0-80.0); Nucleated Red Blood Cells % 0.1 %; Red Blood Cells 2.48 10^6/uL (4.5-5.90); Red Cell Distribution Width 16.6 % (11.8-14.3); White Blood Cell 5.3 10^3/uL (4.4-10.8)
[2023-05-26] MEDS: PERITONEAL DIALYSIS 2.5% SOLN 2,000 ML IP SCH ×5 (01:50→23:49)
[2023-05-26] MEDS: LACTULOSE 20Gm/30ML SOLN PO SCH ×5 (01:59→20:00)
[2023-05-26] MEDS: hydrALAZINE HCL 25 MG TAB PO SCH ×3 (06:18→21:35)
[2023-05-26] MEDS: SEVELAMER 800 MG TAB PO SCH ×4 (08:39→18:10)
[2023-05-26] MEDS: NIFEdipine ER 30 MG TAB PO SCH (09:32)
[2023-05-26] MEDS: LOSARTAN POTASSIUM 50 MG TAB PO SCH (09:33)
[2023-05-26] MEDS: ONDANSETRON HCL 4 MG/2 ML VIAL IV PRN (10:31)
[2023-05-26] MEDS: hydrALAZINE HCL 20 MG/ML VL IV PRN (11:47)
[2023-05-26] MEDS ORDERED: cefTRIAXone 1GM/50ML D5W 50 ML IV ONE (12:00)
[2023-05-26] MEDS ORDERED: FLUTICASONE PROP NASAL SPR 0.05 % (50MCG) 16GM EACHNOSTRI ONE (12:00)
[2023-05-26] MEDS: FLUTICASONE PROP NASAL SPR 0.05 % (50MCG) 16GM EACHNOSTRI SCH ×2 (13:06→21:38)
[2023-05-26] MEDS: ATORVASTATIN 20 MG TAB PO SCH (21:35)
[2023-05-27] VITALS (7 sets, daily range): BP systolic 163–176; BP diastolic 100–115; PULSE 82–109; RESP 14–19; TEMP 98.2–99; O2SAT 93–94
[2023-05-27] MEDS: LACTULOSE 20Gm/30ML SOLN PO SCH ×3 (02:00→14:00)
[2023-05-27] MEDS: hydrALAZINE HCL 25 MG TAB PO SCH (05:47)
[2023-05-27] MEDS: PERITONEAL DIALYSIS 2.5% SOLN 2,000 ML IP SCH ×2 (05:48→12:00)
[2023-05-27] MEDS: SEVELAMER 800 MG TAB PO SCH ×2 (08:12→12:00)
[2023-05-27] MEDS ORDERED: cefTRIAXone 1GM/50ML D5W 50 ML IV SCH (09:00)
[2023-05-27] MEDS ORDERED: NIFE90TA75 PO (09:16)
[2023-05-27] MEDS ORDERED: LOSA100T13 PO (09:16)
[2023-05-27] MEDS ORDERED: HYDR-4297 PO (09:16)
[2023-05-27] MEDS ORDERED: CLON0.1T PO (09:16)
[2023-05-27] MEDS ORDERED: LEVO500T91 PO (09:18)
[2023-05-27] MEDS: NIFEdipine ER 30 MG TAB PO SCH (09:53)
[2023-05-27] MEDS: FLUTICASONE PROP NASAL SPR 0.05 % (50MCG) 16GM EACHNOSTRI SCH (09:53)
[2023-05-27] MEDS: LOSARTAN POTASSIUM 50 MG TAB PO SCH (09:53)
[2023-05-27] MEDS: cloNIDine HCL 0.1 MG TAB PO PRN (10:26)
[2023-05-27] MEDS: hydrALAZINE HCL 20 MG/ML VL IV PRN (11:15)
[2023-05-27] MEDS ORDERED: DIPH-491 PO (14:18)
[2023-05-27] MEDS ORDERED: ZOFR4T PO (14:45)
== END 2023-05-27 15:00 | disposition home or self-care (01) | DRG 304 ==
LOC: ER 12:07 → TELE 22:01 → TELE-WESTW 05-25 05:03
PROVIDERS: ADMIT Nurse Practitioner; ATTEND Internal Medicine
PROC: 30233N1 Transfusion of Nonautologous Red Blood Cells into Peripheral Vein, Percutaneous Approach (ICD-10-PCS; 2023-05-24)
PROC: 3E1M39Z Irrigation of Peritoneal Cavity using Dialysate, Percutaneous Approach (ICD-10-PCS; principal; 2023-05-26)
DX: I16.0 Hypertensive urgency (principal); N18.6 End stage renal disease; K61.1 Rectal abscess; I12.0 Hypertensive chronic kidney disease with stage 5 chronic kidney disease or end stage renal disease; R79.89 Other specified abnormal findings of blood chemistry; D63.1 Anemia in chronic kidney disease; E21.3 Hyperparathyroidism, unspecified; E78.5 Hyperlipidemia, unspecified; Z99.2 Dependence on renal dialysis; Z88.8 Allergy status to other drugs, medicaments and biological substances
CPT/HCPCS: 36415; 74176; 80053; 81001; 82550; 83605; 83735; 84100; 85025; 85610; 85730; 86803; 86850; 86900; 86901; 86920; 87081; 87340; 87804; 99291; G0378; J0696; J2405

== ENCOUNTER 2023-06-01 16:38 | Inpatient (IN) | payer OTHER, MEDICAID ==
[~2023-06-01] VITALS: Ht 170.2 cm; Wt 83.0 kg
[~2023-06-01 16:38] MED LIST changes: -CLIN300C70 PO; +CLON0.1T PO; +DIPH-491 PO; +FLUT50SP NAS; +HYDR-4297 PO; +LANT10002 PO; +LEVO500T91 PO; +LOSA100T13 PO; +NIFE90TA75 PO; +SENN-105 PO; +SEVE800T10 PO; +ZOFR4T PO
[2023-06-01] MEDS ORDERED: ALPRAZolam 0.5 MG TAB PO ONE (17:15)
[2023-06-01 17:24] LABS: Basophils # (auto) 0.1 10 ^3/uL (0-0.2); Basophils % (auto) 1.4 % (0.0-2.0); Eosinophils # (auto) 0.4 10 ^3/uL (0-0.8); Eosinophils % (auto) 7.2 % (0.0-7.0); Hematocrit 23.4 % (41.0-53.0); Hemoglobin 7.9 g/dL (13.5-17.5); Lymphocytes # (auto) 0.4 10 ^3/uL (0.4-5.4); Lymphocytes % (auto) 8.7 % (10.0-50.0); Mean Corpuscular Hemoglobin 30.6 pg (28.0-32.0); Mean Corpuscular Hgb Conc. 33.7 g/dL (32.0-36.0); Monocytes # (auto) 0.3 10 ^3/uL (0-1.3); Monocytes % (auto) 5.9 % (0.0-12.0); Neutrophils # (auto) 3.9 10 ^3/uL (1.6-8.6); Neutrophils % (auto) 76.8 % (37.0-80.0); Red Blood Cells 2.57 10^6/uL (4.5-5.90); Red Cell Distribution Width 16.5 % (11.8-14.3); White Blood Cell 5.1 10^3/uL (4.4-10.8)
[2023-06-01 17:41] LABS: Amylase 80 U/L (30-118)
[2023-06-01 17:58] LABS: Anion Gap 23 (5-15); Lipase 80 U/L (12-53)
[2023-06-01 18:05] LABS: BUN/Creatinine Ratio 3.8 (10.0-20.0)
[2023-06-01 18:06] LABS: Carbon Dioxide 17 mmol/L (20-30); Chloride 93 mmol/L (98-107); Glucose 143 mg/dL (74-106); Potassium 3.9 mmol/L (3.5-5.1); Sodium 133 mmol/L (136-145)
[2023-06-01 18:07] LABS: Alanine Aminotransferase 48 U/L (7-40); Alkaline Phosphatase 82 U/L (46-116); Aspartate Aminotransferase 47 U/L (13-40); Bilirubin, Total < 0.2 mg/dL (0.2-1.0); Calcium 8.4 mg/dL (8.7-10.4); Total Protein 6.2 g/dL (5.7-8.2)
[2023-06-02] VITALS (18 sets, daily range): BP systolic 164–190; BP diastolic 95–121; PULSE 79–93; RESP 14–21; TEMP 96.6–98.7; O2SAT 91–98
[2023-06-02] MEDS ORDERED: DOCUSATE SOD 100 MG CAP PO PRN (03:15)
[2023-06-02] MEDS ORDERED: HYDROcodone-ACET 5/325MG TAB PO PRN (03:15)
[2023-06-02] MEDS ORDERED: MORPHINE SULFATE INJ 2 MG/ml SYRG IV PRN ×2 (03:45→10:00)
[2023-06-02] MEDS ORDERED: NITROGLYCERIN 0.4 MG SL TAB SL PRN (03:45)
[2023-06-02 04:14] LABS: Basophils # (auto) 0.1 10 ^3/uL (0-0.2); Eosinophils # (auto) 0.7 10 ^3/uL (0-0.8); Eosinophils % (auto) 11.9 % (0.0-7.0); Hematocrit 24.6 % (41.0-53.0); Hemoglobin 8.5 g/dL (13.5-17.5); Lymphocytes # (auto) 0.9 10 ^3/uL (0.4-5.4); Lymphocytes % (auto) 16.6 % (10.0-50.0); Mean Corpuscular Hgb Conc. 34.4 g/dL (32.0-36.0); Mean Corpuscular Volume 90.1 fL (80.0-100.0); Monocytes # (auto) 0.5 10 ^3/uL (0-1.3); Neutrophils # (auto) 3.4 10 ^3/uL (1.6-8.6); Neutrophils % (auto) 61.5 % (37.0-80.0); Red Blood Cells 2.73 10^6/uL (4.5-5.90); Red Cell Distribution Width 16.3 % (11.8-14.3); White Blood Cell 5.6 10^3/uL (4.4-10.8)
[2023-06-02 04:34] LABS: Alanine Aminotransferase 50 U/L (7-40); Alkaline Phosphatase 91 U/L (46-116); Anion Gap 26 (5-15); Aspartate Aminotransferase 49 U/L (13-40); Calcium 8.5 mg/dL (8.7-10.4); Carbon Dioxide 16 mmol/L (20-30); Chloride 92 mmol/L (98-107); Glucose 99 mg/dL (74-106); Potassium 3.7 mmol/L (3.5-5.1); Sodium 134 mmol/L (136-145)
[2023-06-02 04:35] LABS: Albumin 4.2 g/dL (3.2-4.8); Bilirubin, Total < 0.2 mg/dL (0.2-1.0); Total Protein 6.5 g/dL (5.7-8.2)
[2023-06-02 04:41] LABS: BUN/Creatinine Ratio 3.8 (10.0-20.0)
[2023-06-02 04:59] LABS: Blood Urea Nitrogen 112 mg/dL (9-23)
[2023-06-02] MEDS ORDERED: IBUPROFEN 600 MG TAB PO PRN (05:15)
[2023-06-02] MEDS: SODIUM CHLOR 0.9% PF (SALINE LOCK) 10ML VIAL/SYR IV SCH ×3 (06:00→21:23)
[2023-06-02] MEDS: SEVELAMER 800 MG TAB PO SCH ×3 (08:28→17:47)
[2023-06-02 09:59] LABS: INR 0.98 (0.9-1.15); Partial Thromboplastin Time 29.3 SEC (24.5-34.5); Prothrombin Time 10.3 sec (9.3-11.8)
[2023-06-02] MEDS ORDERED: amLODIPine BESYLATE 5 MG TAB PO SCH (10:00)
[2023-06-02] MEDS: ASPirin 81 mg TAB PO SCH (10:00)
[2023-06-02] MEDS ORDERED: fentaNYL CITRATE 100 MCG/2 ML VL ONE (10:52)
[2023-06-02] MEDS ORDERED: LIDOCAINE 2%HCL (LOCAL ANESTH.) INJ 20ML MDV ONE (10:52)
[2023-06-02] MEDS ORDERED: MIDAZOLAM HCL 2MG/2ML 2ml VIAL (1mg/ml) ONE (10:52)
[2023-06-02] MEDS ORDERED: HEPARIN SODIUM (PORCINE) 5000 UNITS/ML 1ML VIAL ONE (10:52)
[2023-06-02 11:01] LABS: Blood Urea Nitrogen 112 mg/dL (9-23)
[2023-06-02] MEDS: FAMOTIDINE (10MG/ML) 2ML VL IV SCH ×2 (11:05→21:23)
[2023-06-02] MEDS: B-COMPLEX W/ C & FOLIC ACID(NEPHROVITE TAB) PO SCH (11:08)
[2023-06-02] MEDS ORDERED: hydrALAZINE HCL 20 MG/ML VL ONE (15:30)
[2023-06-02] MEDS: hydrALAZINE HCL 20 MG/ML VL IV PRN ×2 (17:48→21:24)
[2023-06-02] MEDS: ONDANSETRON HCL 4 MG/2 ML VIAL IV PRN ×2 (17:57→21:24)
[2023-06-02] MEDS: cloNIDine HCL 0.1 MG TAB PO PRN (22:50)
[2023-06-03] MEDS: hydrALAZINE HCL 20 MG/ML VL IV PRN ×4 (03:39→20:29)
[2023-06-03 05:00] VITALS: BP 196/111; PULSE 90; RESP 19; TEMP 98; O2SAT 100
[2023-06-03 05:54] LABS: Eosinophils # (auto) 0.2 10 ^3/uL (0-0.8); Lymphocytes # (auto) 0.4 10 ^3/uL (0.4-5.4); Lymphocytes % (auto) 10.5 % (10.0-50.0); Monocytes # (auto) 0.2 10 ^3/uL (0-1.3)
[2023-06-03 05:56] LABS: Basophils # (auto) 0 10 ^3/uL (0-0.2); Eosinophils % (auto) 5.7 % (0.0-7.0); Hemoglobin 7.8 g/dL (13.5-17.5); Mean Corpuscular Hemoglobin 30.7 pg (28.0-32.0); Mean Corpuscular Hgb Conc. 33.9 g/dL (32.0-36.0); Mean Corpuscular Volume 90.6 fL (80.0-100.0); Monocytes % (auto) 4.1 % (0.0-12.0); Neutrophils # (auto) 3.3 10 ^3/uL (1.6-8.6); Neutrophils % (auto) 78.7 % (37.0-80.0); Red Blood Cells 2.54 10^6/uL (4.5-5.90); Red Cell Distribution Width 16.4 % (11.8-14.3); White Blood Cell 4.2 10^3/uL (4.4-10.8)
[2023-06-03 06:06] LABS: Alanine Aminotransferase 59 U/L (7-40); Alkaline Phosphatase 76 U/L (46-116); Anion Gap 23 (5-15); Aspartate Aminotransferase 60 U/L (13-40); Calcium 8.2 mg/dL (8.7-10.4); Carbon Dioxide 17 mmol/L (20-30); Chloride 95 mmol/L (98-107); Glucose 89 mg/dL (74-106); Sodium 135 mmol/L (136-145)
[2023-06-03 06:07] LABS: Albumin 3.7 g/dL (3.2-4.8); Bilirubin, Total < 0.2 mg/dL (0.2-1.0); Total Protein 5.8 g/dL (5.7-8.2)
[2023-06-03] MEDS: ONDANSETRON HCL 4 MG/2 ML VIAL IV PRN (06:44)
[2023-06-03] MEDS ORDERED: SODIUM CHL 0.9% 1000 ML BAG XX ONE (07:00)
[2023-06-03 08:00] VITALS: PULSE 93; O2SAT 92
[2023-06-03] MEDS: SEVELAMER 800 MG TAB PO SCH ×3 (08:23→18:32)
[2023-06-03 08:28] LABS: Blood Urea Nitrogen 107 mg/dL (9-23)
[2023-06-03 09:18] LABS: BUN/Creatinine Ratio 3.6 (10.0-20.0)
[2023-06-03] MEDS ORDERED: NIFEdipine ER 30 MG TAB PO SCH (10:00)
[2023-06-03 10:35] VITALS: BP 150/90; PULSE 102; RESP 20; TEMP 97.5; O2SAT 99
[2023-06-03] MEDS: ASPirin 81 mg TAB PO SCH (10:46)
[2023-06-03] MEDS: FAMOTIDINE (10MG/ML) 2ML VL IV SCH ×2 (10:46→21:24)
[2023-06-03] MEDS: B-COMPLEX W/ C & FOLIC ACID(NEPHROVITE TAB) PO SCH (10:46)
[2023-06-03] MEDS: SODIUM CHLOR 0.9% PF (SALINE LOCK) 10ML VIAL/SYR IV SCH ×2 (13:00→21:24)
[2023-06-03 15:05] VITALS: BP 189/115; PULSE 92; RESP 19; TEMP 97.6; O2SAT 96
[2023-06-03] MEDS ORDERED: LABETALOL HCL 5 MG/ML 4ML SYRINGE IV PRN (15:15)
[2023-06-03] MEDS ORDERED: LABETALOL HCL 200 MG TAB PO ONE (15:15)
[2023-06-03] MEDS ORDERED: hydrOXYzine 25 MG TAB or CAP PO PRN (16:45)
[2023-06-03 16:55] VITALS: BP 156/97; PULSE 112; RESP 20; TEMP 97.6; O2SAT 98
[2023-06-03] MEDS ORDERED: cefTRIAXone 1GM/50ML D5W 50 ML IV ONE (19:15)
[2023-06-03 20:00] VITALS: PULSE 110; PULSE 113; RESP 18; O2SAT 98
[2023-06-03] MEDS ORDERED: EPOETIN ALFA-EPBX 10,000 UNIT/1ML VIAL SC ONE (21:00)
[2023-06-03] MEDS: MIRTAZAPINE 30 MG TAB PO SCH (21:25)
[2023-06-03] MEDS: cloNIDine HCL 0.1 MG TAB PO PRN (21:26)
[2023-06-03] MEDS ORDERED: LABETALOL HCL 200 MG TAB PO SCH (22:00)
[2023-06-04] VITALS (7 sets, daily range): BP systolic 130–174; BP diastolic 66–120; PULSE 96–117; RESP 15–20; TEMP 97.8–99.3; O2SAT 95–97
[2023-06-04] MEDS: hydrALAZINE HCL 20 MG/ML VL IV PRN ×3 (05:35→22:36)
[2023-06-04] MEDS: SODIUM CHLOR 0.9% PF (SALINE LOCK) 10ML VIAL/SYR IV SCH ×3 (06:00→22:37)
[2023-06-04] MEDS: cefTRIAXone 1GM/50ML D5W 50 ML IV SCH (08:50)
[2023-06-04] MEDS: CARVEDILOL 3.125 MG TAB PO SCH ×2 (08:51→22:36)
[2023-06-04] MEDS: ASPirin 81 mg TAB PO SCH (08:51)
[2023-06-04] MEDS: B-COMPLEX W/ C & FOLIC ACID(NEPHROVITE TAB) PO SCH (08:51)
[2023-06-04] MEDS: NIFEdipine ER 30 MG TAB PO SCH (08:51)
[2023-06-04] MEDS: FAMOTIDINE (10MG/ML) 2ML VL IV SCH ×2 (08:51→22:29)
[2023-06-04] MEDS: SEVELAMER 800 MG TAB PO SCH ×3 (08:51→17:31)
[2023-06-04] MEDS ORDERED: NIFEdipine ER 30 MG TAB PO SCH (10:00)
[2023-06-04] MEDS: cloNIDine HCL 0.1 MG TAB PO PRN (13:14)
[2023-06-04] MEDS ORDERED: CARV3.1240 PO (14:19)
[2023-06-04] MEDS ORDERED: MIRT1TAB14 PO (14:19)
[2023-06-04] MEDS ORDERED: DOXY1CAP57 PO (14:19)
[2023-06-04] MEDS: MIRTAZAPINE 30 MG TAB PO SCH (22:47)
[2023-06-05] MEDS: cloNIDine HCL 0.1 MG TAB PO PRN ×2 (00:23→08:00)
[2023-06-05 05:00] VITALS: BP 173/96; PULSE 65; RESP 17; TEMP 98.1; O2SAT 93
[2023-06-05] MEDS: SODIUM CHLOR 0.9% PF (SALINE LOCK) 10ML VIAL/SYR IV SCH (05:16)
[2023-06-05] MEDS: hydrALAZINE HCL 20 MG/ML VL IV PRN (06:05)
[2023-06-05] MEDS: FAMOTIDINE (10MG/ML) 2ML VL IV SCH (07:59)
[2023-06-05] MEDS: cefTRIAXone 1GM/50ML D5W 50 ML IV SCH (07:59)
[2023-06-05] MEDS: ASPirin 81 mg TAB PO SCH (07:59)
[2023-06-05] MEDS: CARVEDILOL 3.125 MG TAB PO SCH (07:59)
[2023-06-05] MEDS: B-COMPLEX W/ C & FOLIC ACID(NEPHROVITE TAB) PO SCH (07:59)
[2023-06-05] MEDS: SEVELAMER 800 MG TAB PO SCH ×2 (07:59→12:00)
[2023-06-05 08:00] VITALS: PULSE 92
[2023-06-05] MEDS: NIFEdipine ER 30 MG TAB PO SCH (08:00)
[2023-06-05 09:00] VITALS: BP 211/133; PULSE 94; RESP 18; TEMP 98.1; O2SAT 98
[2023-06-05] MEDS ORDERED: CARVEDILOL 3.125 MG TAB PO ONE (10:00)
[2023-06-05] MEDS ORDERED: NIFEdipine ER 30 MG TAB PO SCH (10:00)
[2023-06-05] MEDS ORDERED: hydrALAZINE HCL 10 MG TAB PO ONE (10:00)
[2023-06-05 10:44] VITALS: BP 180/95; PULSE 95
[2023-06-05 11:51] VITALS: BP 173/100
[2023-06-05] MEDS ORDERED: CARVEDILOL 3.125 MG TAB PO SCH (22:00)
== END 2023-06-05 12:30 | disposition home or self-care (01) | DRG 673 ==
LOC: ER 16:38 → TELE 06-02 03:35 → TELE-CENTR 06-02 16:57
PROVIDERS: ADMIT Nurse Practitioner Family; ATTEND Internal Medicine
PROC: 0JH63XZ Insertion of Tunneled Vascular Access Device into Chest Subcutaneous Tissue and Fascia, Percutaneous Approach (ICD-10-PCS; principal; 2023-06-02)
PROC: 02H633Z Insertion of Infusion Device into Right Atrium, Percutaneous Approach (ICD-10-PCS; 2023-06-02)
PROC: B548ZZA Ultrasonography of Superior Vena Cava, Guidance (ICD-10-PCS; 2023-06-02)
PROC: 5A1D70Z Performance of Urinary Filtration, Intermittent, Less than 6 Hours Per Day (ICD-10-PCS; 2023-06-03)
DX: I12.0 Hypertensive chronic kidney disease with stage 5 chronic kidney disease or end stage renal disease (principal); N18.6 End stage renal disease; N17.9 Acute kidney failure, unspecified; E87.1 Hypo-osmolality and hyponatremia; I31.39 Other pericardial effusion (noninflammatory); E87.20 Acidosis, unspecified; R18.8 Other ascites; I16.0 Hypertensive urgency; J98.4 Other disorders of lung; J40 Bronchitis, not specified as acute or chronic; N28.89 Other specified disorders of kidney and ureter; D63.1 Anemia in chronic kidney disease; F20.9 Schizophrenia, unspecified; F32.A Depression, unspecified; F41.9 Anxiety disorder, unspecified; N28.1 Cyst of kidney, acquired; Z79.891 Long term (current) use of opiate analgesic; Z99.2 Dependence on renal dialysis
CPT/HCPCS: 36415; 71045; 74176; 74181; 76937; 80053; 82150; 83690; 85025; 85610; 85730; 86850; 86900; 86901; 87070; 87081; 87205; 90935; 93306; 99152; C1894; G0378; J0696; J2250; J2405; J3490

== ENCOUNTER → 2023-06-09 | Outpatient (CLI) | payer OTHER, MEDICAID ==
[~2023-06-09] MED LIST changes: +CARV3.1240 PO; +DOXY1CAP57 PO; +MIRT1TAB14 PO
== END | disposition home or self-care (01) ==
LOC: LAB 10:50
PROVIDERS: ATTEND Podiatrist
DX: M10.9 Gout, unspecified (principal); Z79.899 Other long term (current) drug therapy
CPT/HCPCS: 36415; 83036; 84550

== ENCOUNTER 2023-06-11 17:15 | Inpatient (IN) | payer OTHER, MEDICAID ==
[~2023-06-11] VITALS: Ht 170.2 cm; Wt 93.7 kg
[2023-06-11] MEDS ORDERED: KETOROLAC TROMETH 60MG/2ML VIAL IM ONE (18:15)
[2023-06-11] MEDS ORDERED: ACETAMINOPHEN/CODEINE#3 (300/30mg) TAB PO ONE (18:15)
[2023-06-11 18:46] LABS: Basophils # (auto) 0 10 ^3/uL (0-0.2); Eosinophils # (auto) 0.4 10 ^3/uL (0-0.8); Lymphocytes # (auto) 0.5 10 ^3/uL (0.4-5.4); Mean Corpuscular Volume 93.3 fL (80.0-100.0); Monocytes # (auto) 0.4 10 ^3/uL (0-1.3); Neutrophils # (auto) 2.5 10 ^3/uL (1.6-8.6); Nucleated Red Blood Cells % 0.1 %; White Blood Cell 3.8 10^3/uL (4.4-10.8)
[2023-06-11 18:48] LABS: Eosinophils % (auto) 9.5 % (0.0-7.0); Hematocrit 20.5 % (41.0-53.0); Lymphocytes % (auto) 12.2 % (10.0-50.0); Mean Corpuscular Hemoglobin 30.5 pg (28.0-32.0); Mean Corpuscular Hgb Conc. 32.7 g/dL (32.0-36.0); Monocytes % (auto) 10.4 % (0.0-12.0); Neutrophils % (auto) 66.9 % (37.0-80.0); Red Cell Distribution Width 17.6 % (11.8-14.3)
[2023-06-11 18:52] LABS: Hemoglobin 6.7 g/dL (13.5-17.5)
[2023-06-11 19:06] LABS: Alanine Aminotransferase 43 U/L (7-40); Albumin 3.9 g/dL (3.2-4.8); Alkaline Phosphatase 78 U/L (46-116); Anion Gap 7 (5-15); Aspartate Aminotransferase 41 U/L (13-40); Bilirubin, Total 0.2 mg/dL (0.2-1.0); Blood Alcohol 3.1 mg/dL (<10); Blood Urea Nitrogen 40 mg/dL (9-23); Calcium 9.1 mg/dL (8.7-10.4); Carbon Dioxide 31 mmol/L (20-30); Chloride 105 mmol/L (98-107); Glucose 112 mg/dL (74-106); Potassium 4.2 mmol/L (3.5-5.1); Sodium 143 mmol/L (136-145)
[2023-06-11 20:00] LABS: % Iron Saturation 28.7 % (20-55)
[2023-06-12] VITALS (12 sets, daily range): BP systolic 135–184; BP diastolic 83–108; PULSE 77–99; RESP 9–18; TEMP 97.5–98.2; O2SAT 95–100
[2023-06-12] MEDS ORDERED: cloNIDine HCL 0.1 MG TAB PO ONE (00:30)
[2023-06-12] MEDS: LOSARTAN POTASSIUM 50 MG TAB PO SCH (09:50)
[2023-06-12] MEDS: NIFEdipine ER 30 MG TAB PO SCH (09:51)
[2023-06-12] MEDS: CARVEDILOL 3.125 MG TAB PO SCH ×2 (10:00→22:23)
[2023-06-12] MEDS: cloNIDine HCL 0.1 MG TAB PO PRN ×2 (12:22→23:53)
[2023-06-12] MEDS: hydrALAZINE HCL 20 MG/ML VL IV PRN ×2 (13:20→20:25)
[2023-06-12] MEDS: hydrALAZINE HCL 25 MG TAB PO SCH ×2 (14:19→22:22)
[2023-06-12] MEDS ORDERED: ACETAMINOPHEN 325 MG TAB PO PRN (20:00)
[2023-06-12] MEDS: HYDROcodone-ACET 5/325MG TAB PO PRN (20:23)
[2023-06-12] MEDS: MIRTAZAPINE 30 MG TAB PO SCH (22:25)
[2023-06-13] VITALS (7 sets, daily range): BP systolic 148–198; BP diastolic 90–128; PULSE 92–103; RESP 15–21; TEMP 97.7–98.6; O2SAT 92–100
[2023-06-13 06:17] LABS: Basophils # (auto) 0 10 ^3/uL (0-0.2); Eosinophils # (auto) 0.6 10 ^3/uL (0-0.8); Eosinophils % (auto) 12.7 % (0.0-7.0); Hematocrit 26.3 % (41.0-53.0); Hemoglobin 8.9 g/dL (13.5-17.5); Lymphocytes # (auto) 0.6 10 ^3/uL (0.4-5.4); Mean Corpuscular Hemoglobin 29.4 pg (28.0-32.0); Mean Corpuscular Hgb Conc. 33.7 g/dL (32.0-36.0); Mean Corpuscular Volume 87.2 fL (80.0-100.0); Monocytes # (auto) 0.4 10 ^3/uL (0-1.3); Monocytes % (auto) 9.1 % (0.0-12.0); Neutrophils # (auto) 3.1 10 ^3/uL (1.6-8.6); Neutrophils % (auto) 64.2 % (37.0-80.0); Red Blood Cells 3.02 10^6/uL (4.5-5.90); Red Cell Distribution Width 21.6 % (11.8-14.3); White Blood Cell 4.8 10^3/uL (4.4-10.8)
[2023-06-13] MEDS: hydrALAZINE HCL 25 MG TAB PO SCH ×3 (06:38→21:34)
[2023-06-13] MEDS: HYDROcodone-ACET 5/325MG TAB PO PRN (06:39)
[2023-06-13 06:48] LABS: Alanine Aminotransferase 40 U/L (7-40); Albumin 3.5 g/dL (3.2-4.8); Alkaline Phosphatase 78 U/L (46-116); Anion Gap 10 (5-15); Aspartate Aminotransferase 29 U/L (13-40); Bilirubin, Total 0.2 mg/dL (0.2-1.0); Calcium 8.9 mg/dL (8.7-10.4); Carbon Dioxide 28 mmol/L (20-30); Chloride 104 mmol/L (98-107); Glucose 114 mg/dL (74-106); Potassium 4.1 mmol/L (3.5-5.1); Sodium 142 mmol/L (136-145); Total Protein 5.4 g/dL (5.7-8.2)
[2023-06-13 06:52] LABS: Blood Urea Nitrogen 52 mg/dL (9-23)
[2023-06-13] MEDS: hydrALAZINE HCL 20 MG/ML VL IV PRN ×3 (08:13→23:57)
[2023-06-13] MEDS: LOSARTAN POTASSIUM 50 MG TAB PO SCH (08:13)
[2023-06-13] MEDS: CARVEDILOL 3.125 MG TAB PO SCH ×3 (08:14→21:33)
[2023-06-13] MEDS: NIFEdipine ER 30 MG TAB PO SCH (08:14)
[2023-06-13] MEDS: cloNIDine HCL 0.1 MG TAB PO PRN ×2 (11:54→22:33)
[2023-06-13] MEDS: MIRTAZAPINE 30 MG TAB PO SCH (21:36)
[2023-06-14] VITALS (8 sets, daily range): BP systolic 154–203; BP diastolic 90–133; PULSE 90–106; RESP 18–20; TEMP 98.7–99.3; O2SAT 94–100
[2023-06-14] MEDS: HYDROcodone-ACET 5/325MG TAB PO PRN (01:27)
[2023-06-14] MEDS: cloNIDine HCL 0.1 MG TAB PO PRN ×3 (04:44→22:50)
[2023-06-14] MEDS: hydrALAZINE HCL 25 MG TAB PO SCH ×4 (05:11→21:34)
[2023-06-14] MEDS: hydrALAZINE HCL 20 MG/ML VL IV PRN ×2 (06:09→17:53)
[2023-06-14] MEDS ORDERED: SODIUM CHL 0.9% 1000 ML BAG XX ONE (07:00)
[2023-06-14] MEDS: CARVEDILOL 3.125 MG TAB PO SCH ×3 (09:14→21:37)
[2023-06-14] MEDS: LOSARTAN POTASSIUM 50 MG TAB PO SCH (09:14)
[2023-06-14] MEDS: NIFEdipine ER 30 MG TAB PO SCH (09:14)
[2023-06-14] MEDS ORDERED: EPOETIN ALFA-EPBX 10,000 UNIT/1ML VIAL SC ONE (21:00)
[2023-06-14] MEDS: TERAZOSIN HCL 5 MG CAP PO SCH (21:38)
[2023-06-14] MEDS: MIRTAZAPINE 30 MG TAB PO SCH (21:39)
[2023-06-15] VITALS (7 sets, daily range): BP systolic 149–191; BP diastolic 84–119; PULSE 87–102; RESP 17–20; TEMP 97.5–98.5; O2SAT 92–98
[2023-06-15] MEDS: hydrALAZINE HCL 20 MG/ML VL IV PRN ×2 (00:52→23:08)
[2023-06-15] MEDS: HYDROcodone-ACET 5/325MG TAB PO PRN (04:24)
[2023-06-15] MEDS: hydrALAZINE HCL 25 MG TAB PO SCH ×3 (05:01→21:42)
[2023-06-15] MEDS ORDERED: SODIUM CHL 0.9% 1000 ML BAG XX ONE (07:00)
[2023-06-15 08:38] LABS: Hepatitis B Surface Antigen Negative (Negative)
[2023-06-15 09:00] LABS: Hepatitis C Antibody Negative (Negative)
[2023-06-15] MEDS: CARVEDILOL 3.125 MG TAB PO SCH ×2 (15:22→21:44)
[2023-06-15] MEDS: NIFEdipine ER 30 MG TAB PO SCH (15:22)
[2023-06-15] MEDS: LOSARTAN POTASSIUM 50 MG TAB PO SCH (15:23)
[2023-06-15] MEDS: cloNIDine HCL 0.1 MG TAB PO PRN (17:35)
[2023-06-15] MEDS: TERAZOSIN HCL 5 MG CAP PO SCH (21:45)
[2023-06-15] MEDS: MIRTAZAPINE 30 MG TAB PO SCH (21:46)
[2023-06-16 05:00] VITALS: BP 129/79; PULSE 105; TEMP 97.5; O2SAT 98
[2023-06-16 06:03] LABS: Chloride 102 mmol/L (98-107); Potassium 3.9 mmol/L (3.5-5.1); Sodium 142 mmol/L (136-145)
[2023-06-16 06:04] LABS: Anion Gap 9 (5-15); Calcium 8.6 mg/dL (8.7-10.4); Carbon Dioxide 31 mmol/L (20-30)
[2023-06-16 06:09] LABS: BUN/Creatinine Ratio 5.3 (10.0-20.0); Blood Urea Nitrogen 45 mg/dL (9-23); Glucose 179 mg/dL (74-106)
[2023-06-16] MEDS: hydrALAZINE HCL 25 MG TAB PO SCH ×2 (06:43→15:35)
[2023-06-16 08:00] VITALS: BP 154/89; PULSE 100; PULSE 101; RESP 20; TEMP 98; O2SAT 95
[2023-06-16 09:00] VITALS: BP 154/89; PULSE 100; RESP 20; TEMP 98; O2SAT 95
[2023-06-16] MEDS ORDERED: CARVEDILOL 12.5 MG TAB PO SCH (10:00)
[2023-06-16] MEDS: NIFEdipine ER 30 MG TAB PO SCH (11:22)
[2023-06-16] MEDS: LOSARTAN POTASSIUM 50 MG TAB PO SCH (11:22)
[2023-06-16 13:00] VITALS: BP 149/92; PULSE 104; RESP 16; TEMP 97.8; O2SAT 92
[2023-06-16 16:58] VITALS: BP 180/126; PULSE 77; RESP 16; TEMP 98.2; O2SAT 99
[2023-06-16] MEDS ORDERED: NIFE90TA75 PO (17:22)
[2023-06-16] MEDS ORDERED: TERA5CAP60 PO (17:22)
[2023-06-16] MEDS ORDERED: HYDR100T22 PO (17:22)
[2023-06-16] MEDS ORDERED: LOSA100T58 PO (17:22)
[2023-06-16] MEDS ORDERED: MIRT-94 PO (17:22)
[2023-06-16] MEDS ORDERED: CARV25TA PO (17:22)
[2023-06-16 18:09] VITALS: BP 152/101
[2023-06-30] MEDS ORDERED: LEVO500T91 PO (08:29)
[2023-06-30] MEDS ORDERED: SUCR1TAB PO (08:29)
== END 2023-06-16 20:35 | disposition home or self-care (01) | DRG 291 ==
LOC: ER 17:15 → EDBD 17:15 → TELE 06-12 08:39 → TELE-WESTW 06-12 18:42
PROVIDERS: ADMIT Nurse Practitioner Family; ATTEND Internal Medicine Geriatric Medicine
PROC: 30233N1 Transfusion of Nonautologous Red Blood Cells into Peripheral Vein, Percutaneous Approach (ICD-10-PCS; principal; 2023-06-12)
PROC: 5A1D70Z Performance of Urinary Filtration, Intermittent, Less than 6 Hours Per Day (ICD-10-PCS; 2023-06-14)
PROC: 5A1D70Z Performance of Urinary Filtration, Intermittent, Less than 6 Hours Per Day (ICD-10-PCS; 2023-06-15)
DX: I13.2 Hypertensive heart and chronic kidney disease with heart failure and with stage 5 chronic kidney disease, or end stage renal disease (principal); N18.6 End stage renal disease; R18.8 Other ascites; E46 Unspecified protein-calorie malnutrition; I16.1 Hypertensive emergency; G93.49 Other encephalopathy; I50.810 Right heart failure, unspecified; N28.89 Other specified disorders of kidney and ureter; R55 Syncope and collapse; Z99.2 Dependence on renal dialysis; D63.1 Anemia in chronic kidney disease; F20.9 Schizophrenia, unspecified; F32.A Depression, unspecified; Z83.3 Family history of diabetes mellitus; Z68.32 Body mass index [BMI] 32.0-32.9, adult; Z88.8 Allergy status to other drugs, medicaments and biological substances
CPT/HCPCS: 36415; 70450; 71101; 72040; 73562; 74176; 80048; 80053; 80320; 82728; 83540; 83550; 85025; 85045; 86803; 86850; 86900; 86901; 86920; 87081; 87340; 90935; 96372; G0378; J1642; J1885

== ENCOUNTER 2023-06-18 14:48 | Inpatient (IN) | payer OTHER, MEDICAID ==
[~2023-06-18] VITALS: Ht 170.2 cm; Wt 87.1 kg
[~2023-06-18 14:48] MED LIST changes: +CARV25TA PO; -CARV3.1240 PO; -DOXY1CAP57 PO; -HYDR-4297 PO; +HYDR100T22 PO; -LEVO500T91 PO; +LOSA100T58 PO; +MIRT-94 PO; -MIRT1TAB14 PO; +TERA5CAP60 PO
[2023-06-18 15:31] LABS: Basophils # (auto) 0 10 ^3/uL (0-0.2); Basophils % (auto) 0.8 % (0.0-2.0); Eosinophils # (auto) 0.4 10 ^3/uL (0-0.8); Eosinophils % (auto) 7.8 % (0.0-7.0); Hematocrit 27.6 % (41.0-53.0); Hemoglobin 8.8 g/dL (13.5-17.5); Lymphocytes # (auto) 0.6 10 ^3/uL (0.4-5.4); Lymphocytes % (auto) 11.1 % (10.0-50.0); Mean Corpuscular Hemoglobin 28.3 pg (28.0-32.0); Mean Corpuscular Hgb Conc. 31.9 g/dL (32.0-36.0); Monocytes # (auto) 0.5 10 ^3/uL (0-1.3); Monocytes % (auto) 10.5 % (0.0-12.0); Neutrophils # (auto) 3.5 10 ^3/uL (1.6-8.6); Neutrophils % (auto) 69.8 % (37.0-80.0); Nucleated Red Blood Cells % 0.1 %; Red Cell Distribution Width 21.2 % (11.8-14.3); White Blood Cell 5.1 10^3/uL (4.4-10.8)
[2023-06-18 15:44] LABS: Alanine Aminotransferase 33 U/L (7-40); Alkaline Phosphatase 76 U/L (46-116); Anion Gap 9 (5-15); Aspartate Aminotransferase 25 U/L (13-40); BUN/Creatinine Ratio 4.6 (10.0-20.0); Blood Urea Nitrogen 41 mg/dL (9-23); Calcium 9.2 mg/dL (8.7-10.4); Carbon Dioxide 29 mmol/L (20-30); Chloride 101 mmol/L (98-107); Glucose 161 mg/dL (74-106); Potassium 4.1 mmol/L (3.5-5.1); Sodium 139 mmol/L (136-145)
[2023-06-18 15:45] LABS: Bilirubin, Total 0.4 mg/dL (0.2-1.0)
[2023-06-18] MEDS ORDERED: ACETAMINOPHEN 325 MG TAB PO PRN (19:30)
[2023-06-18] MEDS ORDERED: PANTOPRAZOLE 40 MG/10 ML VIAL INJ IV ONE (19:30)
[2023-06-18] MEDS ORDERED: ONDANSETRON HCL 4 MG/2 ML VIAL IV PRN (19:30)
[2023-06-18 21:09] LABS: COVID19 ANTIGEN SOFIA FIA NEGATIVE (NEGATIVE)
[2023-06-18] MEDS ORDERED: PATIENTS OWN MEDICATION (Carvedilol (Coreg) 1 TAB) PO SCH (22:00)
[2023-06-18] MEDS ORDERED: PATIENTS OWN MEDICATION (Hydralazine HCl (Hydralazine Hydrochloride) 100 MG) PO SCH (22:00)
[2023-06-19] VITALS (7 sets, daily range): BP systolic 139–205; BP diastolic 73–136; PULSE 76–95; RESP 16–20; TEMP 97.3–98.1; O2SAT 95–98
[2023-06-19 04:57] LABS: Basophils # (auto) 0.1 10 ^3/uL (0-0.2); Eosinophils # (auto) 0.5 10 ^3/uL (0-0.8); Eosinophils % (auto) 13.3 % (0.0-7.0); Hematocrit 27.1 % (41.0-53.0); Hemoglobin 8.9 g/dL (13.5-17.5); Lymphocytes # (auto) 0.6 10 ^3/uL (0.4-5.4); Lymphocytes % (auto) 15.6 % (10.0-50.0); Mean Corpuscular Hemoglobin 28.8 pg (28.0-32.0); Mean Corpuscular Hgb Conc. 32.7 g/dL (32.0-36.0); Mean Corpuscular Volume 88.1 fL (80.0-100.0); Monocytes # (auto) 0.6 10 ^3/uL (0-1.3); Monocytes % (auto) 14.4 % (0.0-12.0); Neutrophils # (auto) 2.1 10 ^3/uL (1.6-8.6); Neutrophils % (auto) 54.7 % (37.0-80.0); Nucleated Red Blood Cells % 0.1 %; Red Blood Cells 3.08 10^6/uL (4.5-5.90); White Blood Cell 3.9 10^3/uL (4.4-10.8)
[2023-06-19 05:09] LABS: Alanine Aminotransferase 32 U/L (7-40); Albumin 3.7 g/dL (3.2-4.8); Alkaline Phosphatase 81 U/L (46-116); Anion Gap 9 (5-15); Aspartate Aminotransferase 22 U/L (13-40); BUN/Creatinine Ratio 4.9 (10.0-20.0); Blood Urea Nitrogen 50 mg/dL (9-23); Calcium 8.5 mg/dL (8.7-10.4); Carbon Dioxide 29 mmol/L (20-30); Chloride 103 mmol/L (98-107); Glucose 117 mg/dL (74-106); Potassium 4.2 mmol/L (3.5-5.1); Sodium 141 mmol/L (136-145)
[2023-06-19 05:10] LABS: Bilirubin, Total 0.4 mg/dL (0.2-1.0); Total Protein 5.8 g/dL (5.7-8.2)
[2023-06-19 05:15] LABS: Red Cell Distribution Width 21.1 % (11.8-14.3)
[2023-06-19] MEDS: hydrALAZINE HCL 25 MG TAB PO SCH ×3 (05:31→21:43)
[2023-06-19] MEDS: PANTOPRAZOLE 40 MG/10 ML VIAL INJ IV SCH (09:19)
[2023-06-19] MEDS: CARVEDILOL 12.5 MG TAB PO SCH ×3 (09:21→22:44)
[2023-06-19] MEDS: TERAZOSIN HCL 5 MG CAP PO SCH (09:21)
[2023-06-19] MEDS: LANTHANUM CARBONATE 1000 MG PO SCH ×2 (15:39→21:41)
[2023-06-19] MEDS ORDERED: MIRTAZAPINE 30 MG TAB PO SCH (18:00)
[2023-06-19] MEDS ORDERED: LOSARTAN POTASSIUM 50 MG TAB PO ONE (19:00)
[2023-06-19] MEDS ORDERED: cloNIDine HCL 0.1 MG TAB PO PRN (19:00)
[2023-06-19] MEDS ORDERED: cloNIDine HCL 0.1 MG TAB PO ONE (19:00)
[2023-06-19] MEDS ORDERED: NIFEdipine ER 30 MG TAB PO ONE (19:00)
[2023-06-20 05:00] VITALS: BP 164/101; PULSE 90; RESP 16; TEMP 97.8; O2SAT 96
[2023-06-20] MEDS: hydrALAZINE HCL 25 MG TAB PO SCH (05:50)
[2023-06-20] MEDS: LANTHANUM CARBONATE 1000 MG PO SCH (05:53)
[2023-06-20 08:00] VITALS: BP 155/98; PULSE 88; PULSE 90; RESP 16; RESP 20; TEMP 98; O2SAT 95
[2023-06-20 09:00] VITALS: BP 155/98; PULSE 90; RESP 20; TEMP 98; O2SAT 96
[2023-06-20] MEDS: CARVEDILOL 12.5 MG TAB PO SCH (09:54)
[2023-06-20] MEDS: TERAZOSIN HCL 5 MG CAP PO SCH (09:56)
[2023-06-20] MEDS: PANTOPRAZOLE 40 MG/10 ML VIAL INJ IV SCH (09:56)
[2023-06-20] MEDS ORDERED: LOSARTAN POTASSIUM 50 MG TAB PO SCH (10:00)
[2023-06-20] MEDS ORDERED: NIFEdipine ER 30 MG TAB PO SCH (10:00)
[2023-06-20 12:58] VITALS: BP 155/98; PULSE 90; RESP 18; TEMP 36.7; O2SAT 96
[2023-06-20 13:00] VITALS: BP 147/79; PULSE 83; RESP 18; TEMP 98.1; O2SAT 95
== END 2023-06-20 14:28 | disposition home or self-care (01) | DRG 304 ==
LOC: ER 14:48 → OVERFLOW 19:25 → WEST WING 23:45
PROVIDERS: ADMIT Nurse Practitioner Family; ATTEND Internal Medicine Geriatric Medicine
DX: I16.0 Hypertensive urgency (principal); N18.6 End stage renal disease; I12.0 Hypertensive chronic kidney disease with stage 5 chronic kidney disease or end stage renal disease; D63.1 Anemia in chronic kidney disease; Z99.2 Dependence on renal dialysis; Z88.8 Allergy status to other drugs, medicaments and biological substances; Z86.73 Personal history of transient ischemic attack (TIA), and cerebral infarction without residual deficits; F32.A Depression, unspecified
CPT/HCPCS: 36415; 70450; 74176; 80053; 83735; 85025; 86850; 86900; 86901; 87045; 87081; 87177; 87426; 87427; 87493; 93005; 96374; C9113; G0378

== ENCOUNTER 2023-06-22 05:12 | Inpatient (IN) | payer OTHER, MEDICAID ==
[2023-06-22] VITALS (7 sets, daily range): BP systolic 161–205; BP diastolic 102–125; PULSE 96–110; RESP 14–40; TEMP 97.6–98.2; O2SAT 95–100
[~2023-06-22] VITALS: Ht 170.2 cm; Wt 77.1 kg
[~2023-06-22 05:12] MED LIST changes: -LOSA100T58 PO
[2023-06-22 06:23] LABS: COVID19 ANTIGEN SOFIA FIA NEGATIVE (NEGATIVE)
[2023-06-22 06:24] LABS: Rapid Influenza B Negative (Negative)
[2023-06-22 06:25] LABS: Basophils # (auto) 0 10 ^3/uL (0-0.2); Eosinophils # (auto) 0 10 ^3/uL (0-0.8); Hematocrit 21.8 % (41.0-53.0); Hemoglobin 7.1 g/dL (13.5-17.5); Lymphocytes # (auto) 0.3 10 ^3/uL (0.4-5.4); Neutrophils # (auto) 2.2 10 ^3/uL (1.6-8.6); Nucleated Red Blood Cells % 0.1 %
[2023-06-22 06:26] LABS: Rapid Influenza A Positive (Negative)
[2023-06-22 06:30] LABS: Eosinophils % (auto) 1.2 % (0.0-7.0); Lymphocytes % (auto) 11.1 % (10.0-50.0); Mean Corpuscular Hemoglobin 29.3 pg (28.0-32.0); Mean Corpuscular Hgb Conc. 32.7 g/dL (32.0-36.0); Mean Corpuscular Volume 89.7 fL (80.0-100.0); Monocytes # (auto) 0.4 10 ^3/uL (0-1.3); Monocytes % (auto) 14.6 % (0.0-12.0); Neutrophils % (auto) 72.1 % (37.0-80.0); Red Blood Cells 2.43 10^6/uL (4.5-5.90)
[2023-06-22 06:32] LABS: Red Cell Distribution Width 21.7 % (11.8-14.3)
[2023-06-22 06:43] LABS: Alanine Aminotransferase 39 U/L (7-40); Albumin 3.8 g/dL (3.2-4.8); Alkaline Phosphatase 65 U/L (46-116); Anion Gap 12 (5-15); Aspartate Aminotransferase 39 U/L (13-40); BUN/Creatinine Ratio 4.6 (10.0-20.0); Bilirubin, Total 0.2 mg/dL (0.2-1.0); Blood Urea Nitrogen 63 mg/dL (9-23); Calcium 8.3 mg/dL (8.7-10.4); Carbon Dioxide 25 mmol/L (20-30); Chloride 99 mmol/L (98-107); Glucose 96 mg/dL (74-106); Magnesium 2.1 mg/dL (1.6-2.6); Potassium 5.4 mmol/L (3.5-5.1); Sodium 136 mmol/L (136-145); Total Protein 5.6 g/dL (5.7-8.2)
[2023-06-22 06:58] LABS: INR 1.06 (0.9-1.15); Prothrombin Time 11.1 sec (9.3-11.8)
[2023-06-22] MEDS ORDERED: hydrALAZINE HCL 20 MG/ML VL IV ONE ×2 (07:15→17:15)
[2023-06-22] MEDS ORDERED: ONDANSETRON HCL 4 MG/2 ML VIAL IV ONE (08:00)
[2023-06-22] MEDS ORDERED: SODIUM CHL 0.9% 1000 ML BAG XX ONE (13:30)
[2023-06-22] MEDS ORDERED: DOCUSATE SOD 100 MG CAP PO PRN (13:45)
[2023-06-22] MEDS ORDERED: MORPHINE SULFATE INJ 2 MG/ml SYRG IV PRN (13:45)
[2023-06-22] MEDS ORDERED: OSELTAMIVIR 30 MG CAP PO ONE (14:45)
[2023-06-22 14:52] LABS: Hemoglobin 7.7 g/dL (13.5-17.5)
[2023-06-22 14:54] LABS: Hematocrit 23.9 % (41.0-53.0)
[2023-06-22 15:00] LABS: % Iron Saturation 10.9 % (20-55)
[2023-06-22] MEDS: LANTHANUM CARBONATE 1000 MG PO SCH ×2 (15:27→22:00)
[2023-06-22] MEDS: levoFLOXacin 250MG 50 ML IV SCH (15:27)
[2023-06-22] MEDS: ONDANSETRON HCL 4 MG/2 ML VIAL IV PRN (15:34)
[2023-06-22] MEDS: SEVELAMER 800 MG TAB PO SCH ×2 (18:48→18:51)
[2023-06-22] MEDS ORDERED: EPOETIN ALFA-EPBX 10,000 UNIT/1ML VIAL SC ONE (21:00)
[2023-06-22] MEDS: hydrALAZINE HCL 25 MG TAB PO SCH (21:22)
[2023-06-22] MEDS ORDERED: HEPARIN SODIUM (PORCINE) 5000 UNITS/ML 1ML VIAL SC SCH (22:00)
[2023-06-22] MEDS: CARVEDILOL 12.5 MG TAB PO SCH (22:00)
[2023-06-23] MEDS: cloNIDine HCL 0.1 MG TAB PO PRN (00:35)
[2023-06-23 02:17] LABS: Chloride 98 mmol/L (98-107); Potassium 4.4 mmol/L (3.5-5.1); Sodium 136 mmol/L (136-145)
[2023-06-23 02:18] LABS: Anion Gap 10 (5-15); Carbon Dioxide 28 mmol/L (20-30)
[2023-06-23 02:23] LABS: Glucose 131 mg/dL (74-106)
[2023-06-23 02:30] LABS: Blood Urea Nitrogen 49 mg/dL (9-23)
[2023-06-23 02:48] LABS: BUN/Creatinine Ratio 4.4 (10.0-20.0)
[2023-06-23 04:56] LABS: Basophils # (auto) 0 10 ^3/uL (0-0.2); Basophils % (auto) 0.9 % (0.0-2.0); Eosinophils # (auto) 0 10 ^3/uL (0-0.8); Eosinophils % (auto) 0.4 % (0.0-7.0); Hematocrit 27.6 % (41.0-53.0); Hemoglobin 9.2 g/dL (13.5-17.5); Lymphocytes # (auto) 0.4 10 ^3/uL (0.4-5.4); Lymphocytes % (auto) 10.7 % (10.0-50.0); Mean Corpuscular Hemoglobin 29.3 pg (28.0-32.0); Mean Corpuscular Hgb Conc. 33.5 g/dL (32.0-36.0); Mean Corpuscular Volume 87.5 fL (80.0-100.0); Monocytes # (auto) 0.4 10 ^3/uL (0-1.3); Monocytes % (auto) 12.3 % (0.0-12.0); Neutrophils # (auto) 2.8 10 ^3/uL (1.6-8.6); Neutrophils % (auto) 75.7 % (37.0-80.0); Red Blood Cells 3.15 10^6/uL (4.5-5.90); White Blood Cell 3.6 10^3/uL (4.4-10.8)
[2023-06-23 05:10] LABS: Alanine Aminotransferase 45 U/L (7-40); Albumin 3.8 g/dL (3.2-4.8); Alkaline Phosphatase 59 U/L (46-116); Anion Gap 10 (5-15); Aspartate Aminotransferase 50 U/L (13-40); BUN/Creatinine Ratio 4.3 (10.0-20.0); Blood Urea Nitrogen 49 mg/dL (9-23); Calcium 8.6 mg/dL (8.5-10.1); Carbon Dioxide 28 mmol/L (20-30); Chloride 98 mmol/L (98-107); Glucose 100 mg/dL (74-106); Potassium 4.5 mmol/L (3.5-5.1); Sodium 136 mmol/L (136-145)
[2023-06-23 05:11] LABS: Bilirubin, Total 0.3 mg/dL (0.2-1.0); Total Protein 5.9 g/dL (5.7-8.2)
[2023-06-23] MEDS: LANTHANUM CARBONATE 1000 MG PO SCH ×3 (05:51→22:00)
[2023-06-23] MEDS: hydrALAZINE HCL 25 MG TAB PO SCH ×2 (05:54→14:10)
[2023-06-23 07:50] VITALS: PULSE 93; RESP 23; O2SAT 99
[2023-06-23] MEDS: SEVELAMER 800 MG TAB PO SCH ×3 (08:11→18:11)
[2023-06-23] MEDS ORDERED: LOSARTAN POTASSIUM 50 MG TAB PO SCH (10:00)
[2023-06-23] MEDS ORDERED: OSELTAMIVIR 30 MG CAP PO SCH (10:00)
[2023-06-23] MEDS: NIFEdipine ER 30 MG TAB PO SCH (10:04)
[2023-06-23] MEDS: CARVEDILOL 12.5 MG TAB PO SCH (10:07)
[2023-06-23] MEDS ORDERED: methylPREDNISolone SOD SUCC 125 MG/2 ML VL IV ONE (12:45)
[2023-06-23 19:30] VITALS: PULSE 82; RESP 22; O2SAT 95
[2023-06-24] VITALS (9 sets, daily range): BP systolic 157–160; BP diastolic 90–99; PULSE 68–90; RESP 16–19; TEMP 97.9–98.2; O2SAT 91–98
[2023-06-24] MEDS: CARVEDILOL 12.5 MG TAB PO SCH ×3 (00:45→22:02)
[2023-06-24] MEDS: hydrALAZINE HCL 25 MG TAB PO SCH ×4 (00:45→22:02)
[2023-06-24 05:43] LABS: Basophils # (auto) 0 10 ^3/uL (0-0.2); Basophils % (auto) 0.5 % (0.0-2.0); Eosinophils # (auto) 0 10 ^3/uL (0-0.8); Eosinophils % (auto) 0.1 % (0.0-7.0); Hematocrit 31.2 % (41.0-53.0); Hemoglobin 10.1 g/dL (13.5-17.5); Lymphocytes # (auto) 0.3 10 ^3/uL (0.4-5.4); Mean Corpuscular Hemoglobin 28.6 pg (28.0-32.0); Mean Corpuscular Hgb Conc. 32.3 g/dL (32.0-36.0); Mean Corpuscular Volume 88.5 fL (80.0-100.0); Monocytes # (auto) 0.3 10 ^3/uL (0-1.3); Monocytes % (auto) 11.3 % (0.0-12.0); Neutrophils # (auto) 2.2 10 ^3/uL (1.6-8.6); Neutrophils % (auto) 79.1 % (37.0-80.0); Nucleated Red Blood Cells % 0.5 %; Red Blood Cells 3.52 10^6/uL (4.5-5.90); White Blood Cell 2.8 10^3/uL (4.4-10.8)
[2023-06-24 06:00] LABS: Alanine Aminotransferase 48 U/L (7-40); Albumin 3.8 g/dL (3.2-4.8); Alkaline Phosphatase 60 U/L (46-116); Aspartate Aminotransferase 44 U/L (13-40); BUN/Creatinine Ratio 4.1 (10.0-20.0); Bilirubin, Total 0.3 mg/dL (0.2-1.0); Blood Urea Nitrogen 58 mg/dL (9-23); Calcium 8.7 mg/dL (8.5-10.1); Cholesterol 187 mg/dL (< 200); Glucose 158 mg/dL (74-106); HDL Cholesterol 42 mg/dL (40-59); LDL Cholesterol 99 mg/dL (< 100); Triglycerides 190 mg/dL (< 150)
[2023-06-24] MEDS: LANTHANUM CARBONATE 1000 MG PO SCH ×3 (06:00→22:00)
[2023-06-24 06:05] LABS: Chloride 96 mmol/L (98-107); Potassium 5.1 mmol/L (3.5-5.1); Sodium 133 mmol/L (136-145)
[2023-06-24 06:09] LABS: CRP High Sensitivity 3.85 mg/dL (<1.0)
[2023-06-24 06:10] LABS: Anion Gap 16 (5-15); Carbon Dioxide 21 mmol/L (20-30)
[2023-06-24] MEDS: ONDANSETRON HCL 4 MG/2 ML VIAL IV PRN (06:26)
[2023-06-24 06:43] LABS: Magnesium 2.5 mg/dL (1.6-2.6)
[2023-06-24] MEDS ORDERED: SODIUM CHL 0.9% 1000 ML BAG XX ONE (07:00)
[2023-06-24] MEDS: SEVELAMER 800 MG TAB PO SCH ×3 (11:01→17:37)
[2023-06-24] MEDS: NIFEdipine ER 30 MG TAB PO SCH (11:03)
[2023-06-24] MEDS: levoFLOXacin 250MG 50 ML IV SCH (13:15)
[2023-06-24] MEDS ORDERED: EPOETIN ALFA-EPBX 4,000 UNIT/ML VIAL SC ONE (21:00)
[2023-06-25] VITALS (11 sets, daily range): BP systolic 150–177; BP diastolic 92–115; PULSE 81–96; RESP 18–20; TEMP 97.6–98.6; O2SAT 91–95
[2023-06-25] MEDS: LANTHANUM CARBONATE 1000 MG PO SCH ×3 (05:46→21:45)
[2023-06-25] MEDS: hydrALAZINE HCL 25 MG TAB PO SCH ×3 (05:47→21:55)
[2023-06-25] MEDS ORDERED: SODIUM CHL 0.9% 1000 ML BAG XX ONE (07:00)
[2023-06-25] MEDS: SEVELAMER 800 MG TAB PO SCH ×3 (08:05→18:26)
[2023-06-25] MEDS: CARVEDILOL 12.5 MG TAB PO SCH ×2 (10:00→21:55)
[2023-06-25] MEDS: NIFEdipine ER 30 MG TAB PO SCH (10:00)
[2023-06-25] MEDS: hydrALAZINE HCL 20 MG/ML VL IV PRN (12:08)
[2023-06-25] MEDS: cloNIDine HCL 0.1 MG TAB PO PRN (12:16)
[2023-06-25] MEDS: IPRATROPIUM BROM 0.5 MG/2.5ML INH SOL NEB PRN (13:36)
[2023-06-25] MEDS: ALBUTEROL MEDNEB 2.5 mg/3ml NEB NEB PRN (13:36)
[2023-06-26] VITALS (8 sets, daily range): BP systolic 155–180; BP diastolic 87–116; PULSE 71–90; RESP 16–19; TEMP 98–98.9; O2SAT 94–99
[2023-06-26] MEDS: cloNIDine HCL 0.1 MG TAB PO PRN ×2 (02:54→16:28)
[2023-06-26] MEDS: LANTHANUM CARBONATE 1000 MG PO SCH ×3 (05:36→22:46)
[2023-06-26] MEDS: SUCRALFATE 1 GM/10 ML ORAL SUSP PO SCH ×2 (05:37→16:27)
[2023-06-26] MEDS: hydrALAZINE HCL 25 MG TAB PO SCH ×3 (05:37→22:45)
[2023-06-26 06:28] LABS: Alanine Aminotransferase 46 U/L (7-40); Albumin 3.4 g/dL (3.2-4.8); Alkaline Phosphatase 51 U/L (46-116); Anion Gap 11 (5-15); Aspartate Aminotransferase 48 U/L (13-40); BUN/Creatinine Ratio 4.1 (10.0-20.0); Bilirubin, Total 0.2 mg/dL (0.2-1.0); Blood Urea Nitrogen 42 mg/dL (9-23); Calcium 8.9 mg/dL (8.5-10.1); Carbon Dioxide 27 mmol/L (20-30); Chloride 101 mmol/L (98-107); Glucose 104 mg/dL (74-106); Potassium 4.1 mmol/L (3.5-5.1); Sodium 139 mmol/L (136-145); Total Protein 5.3 g/dL (5.7-8.2)
[2023-06-26 06:29] LABS: Basophils # (auto) 0 10 ^3/uL (0-0.2); Eosinophils # (auto) 0.1 10 ^3/uL (0-0.8); Eosinophils % (auto) 3.3 % (0.0-7.0); Hematocrit 26.3 % (41.0-53.0); Hemoglobin 8.8 g/dL (13.5-17.5); Lymphocytes # (auto) 0.7 10 ^3/uL (0.4-5.4); Lymphocytes % (auto) 21.9 % (10.0-50.0); Mean Corpuscular Hemoglobin 29.1 pg (28.0-32.0); Mean Corpuscular Hgb Conc. 33.5 g/dL (32.0-36.0); Mean Corpuscular Volume 87.1 fL (80.0-100.0); Monocytes # (auto) 0.5 10 ^3/uL (0-1.3); Neutrophils % (auto) 59.8 % (37.0-80.0); Nucleated Red Blood Cells % 0.7 %; Red Blood Cells 3.02 10^6/uL (4.5-5.90); Red Cell Distribution Width 19.6 % (11.8-14.3); White Blood Cell 3.4 10^3/uL (4.4-10.8)
[2023-06-26] MEDS: hydrALAZINE HCL 20 MG/ML VL IV PRN (07:18)
[2023-06-26] MEDS: PANTOPRAZOLE 40 MG/10 ML VIAL INJ IV SCH (09:42)
[2023-06-26] MEDS: CARVEDILOL 12.5 MG TAB PO SCH ×2 (09:47→22:46)
[2023-06-26] MEDS: SEVELAMER 800 MG TAB PO SCH ×3 (09:48→19:35)
[2023-06-26] MEDS: NIFEdipine ER 30 MG TAB PO SCH (09:48)
[2023-06-26] MEDS: levoFLOXacin 250MG 50 ML IV SCH (15:14)
[2023-06-27] VITALS (17 sets, daily range): BP systolic 149–167; BP diastolic 77–107; PULSE 72–108; RESP 16–22; TEMP 97.4–98.5; O2SAT 92–100
[2023-06-27] MEDS: hydrALAZINE HCL 20 MG/ML VL IV PRN ×2 (01:17→17:56)
[2023-06-27] MEDS: ALBUTEROL MEDNEB 2.5 mg/3ml NEB NEB PRN ×3 (01:18→22:43)
[2023-06-27] MEDS: IPRATROPIUM BROM 0.5 MG/2.5ML INH SOL NEB PRN ×3 (01:18→22:43)
[2023-06-27] MEDS: ONDANSETRON HCL 4 MG/2 ML VIAL IV PRN (05:28)
[2023-06-27] MEDS: LANTHANUM CARBONATE 1000 MG PO SCH ×3 (05:34→22:00)
[2023-06-27] MEDS: SUCRALFATE 1 GM/10 ML ORAL SUSP PO SCH ×2 (06:16→17:55)
[2023-06-27] MEDS: hydrALAZINE HCL 25 MG TAB PO SCH ×3 (06:33→22:06)
[2023-06-27] MEDS ORDERED: SODIUM CHL 0.9% 1000 ML BAG XX ONE (07:00)
[2023-06-27] MEDS: SEVELAMER 800 MG TAB PO SCH ×3 (08:51→17:55)
[2023-06-27] MEDS: PANTOPRAZOLE 40 MG/10 ML VIAL INJ IV SCH (08:52)
[2023-06-27] MEDS: CARVEDILOL 12.5 MG TAB PO SCH ×2 (09:50→22:05)
[2023-06-27] MEDS: NIFEdipine ER 30 MG TAB PO SCH (09:51)
[2023-06-27] MEDS ORDERED: EPOETIN ALFA-EPBX 10,000 UNIT/1ML VIAL SC ONE (21:00)
[2023-06-28] VITALS (12 sets, daily range): BP systolic 124–184; BP diastolic 73–123; PULSE 83–90; RESP 18–22; TEMP 98.1–98.9; O2SAT 93–100
[2023-06-28] MEDS: LANTHANUM CARBONATE 1000 MG PO SCH ×3 (05:24→22:00)
[2023-06-28] MEDS: hydrALAZINE HCL 25 MG TAB PO SCH ×3 (06:00→22:36)
[2023-06-28] MEDS: SUCRALFATE 1 GM/10 ML ORAL SUSP PO SCH ×2 (06:00→18:22)
[2023-06-28] MEDS: ONDANSETRON HCL 4 MG/2 ML VIAL IV PRN ×2 (06:08→23:23)
[2023-06-28] MEDS: SEVELAMER 800 MG TAB PO SCH ×3 (07:57→18:22)
[2023-06-28] MEDS: hydrALAZINE HCL 20 MG/ML VL IV PRN ×2 (07:58→13:26)
[2023-06-28] MEDS: NIFEdipine ER 30 MG TAB PO SCH (09:37)
[2023-06-28] MEDS: CARVEDILOL 12.5 MG TAB PO SCH ×2 (09:38→22:35)
[2023-06-28] MEDS: PANTOPRAZOLE 40 MG/10 ML VIAL INJ IV SCH (09:38)
[2023-06-28] MEDS: levoFLOXacin 250MG 50 ML IV SCH (13:25)
[2023-06-28] MEDS: ALBUTEROL MEDNEB 2.5 mg/3ml NEB NEB PRN (18:39)
[2023-06-28] MEDS: IPRATROPIUM BROM 0.5 MG/2.5ML INH SOL NEB PRN (18:39)
[2023-06-28] MEDS: MUPIROCIN 2% OINT 15gm or 22gm FOR MRSA NARES TOP SCH (22:37)
[2023-06-29] MEDS: cloNIDine HCL 0.1 MG TAB PO PRN (04:04)
[2023-06-29 05:00] VITALS: BP 164/110; PULSE 85; RESP 20; TEMP 97.5; O2SAT 94
[2023-06-29] MEDS: LANTHANUM CARBONATE 1000 MG PO SCH ×2 (05:55→14:00)
[2023-06-29] MEDS: SUCRALFATE 1 GM/10 ML ORAL SUSP PO SCH (06:02)
[2023-06-29] MEDS: hydrALAZINE HCL 25 MG TAB PO SCH ×2 (06:03→14:00)
[2023-06-29 08:00] VITALS: RESP 16; RESP 18; O2SAT 95
[2023-06-29 08:45] VITALS: BP 149/83; PULSE 88; RESP 19; TEMP 98.1; O2SAT 95
[2023-06-29] MEDS: CARVEDILOL 12.5 MG TAB PO SCH (09:52)
[2023-06-29] MEDS: MUPIROCIN 2% OINT 15gm or 22gm FOR MRSA NARES TOP SCH (09:53)
[2023-06-29] MEDS: NIFEdipine ER 30 MG TAB PO SCH (09:53)
[2023-06-29] MEDS: PANTOPRAZOLE 40 MG/10 ML VIAL INJ IV SCH (09:53)
[2023-06-29] MEDS: SEVELAMER 800 MG TAB PO SCH ×2 (09:53→12:15)
[2023-06-29 10:00] VITALS: O2SAT 95
[2023-06-29 12:05] VITALS: BP 149/83; PULSE 83; TEMP 36.7
[2023-06-30] MEDS ORDERED: SUCR1TAB PO (08:29)
[2023-06-30] MEDS ORDERED: LEVO500T91 PO (08:29)
== END 2023-06-29 14:00 | disposition home or self-care (01) | DRG 871 ==
LOC: ER 05:12 → TELE 13:45 → TELE-WESTW 06-24 11:56
PROVIDERS: ADMIT Nurse Practitioner Family; ATTEND Family Medicine
PROC: 5A1D70Z Performance of Urinary Filtration, Intermittent, Less than 6 Hours Per Day (ICD-10-PCS; principal; 2023-06-22)
PROC: 30233N1 Transfusion of Nonautologous Red Blood Cells into Peripheral Vein, Percutaneous Approach (ICD-10-PCS; 2023-06-22)
PROC: 5A1D70Z Performance of Urinary Filtration, Intermittent, Less than 6 Hours Per Day (ICD-10-PCS; 2023-06-24)
PROC: 5A1D70Z Performance of Urinary Filtration, Intermittent, Less than 6 Hours Per Day (ICD-10-PCS; 2023-06-25)
PROC: 5A1D70Z Performance of Urinary Filtration, Intermittent, Less than 6 Hours Per Day (ICD-10-PCS; 2023-06-27)
DX: A41.89 Other specified sepsis (principal); I21.A1 Myocardial infarction type 2; I50.33 Acute on chronic diastolic (congestive) heart failure; J96.21 Acute and chronic respiratory failure with hypoxia; N18.6 End stage renal disease; J10.08 Influenza due to other identified influenza virus with other specified pneumonia; J18.9 Pneumonia, unspecified organism; I13.2 Hypertensive heart and chronic kidney disease with heart failure and with stage 5 chronic kidney disease, or end stage renal disease; I16.1 Hypertensive emergency; I31.39 Other pericardial effusion (noninflammatory); K92.0 Hematemesis; N25.81 Secondary hyperparathyroidism of renal origin; K86.1 Other chronic pancreatitis; F32.A Depression, unspecified; F41.9 Anxiety disorder, unspecified; K21.9 Gastro-esophageal reflux disease without esophagitis; Z20.822 Contact with and (suspected) exposure to COVID-19; D72.819 Decreased white blood cell count, unspecified; E87.5 Hyperkalemia; R74.01 Elevation of levels of liver transaminase levels; D63.1 Anemia in chronic kidney disease; F20.9 Schizophrenia, unspecified; Z82.49 Family history of ischemic heart disease and other diseases of the circulatory system; Z80.3 Family history of malignant neoplasm of breast; Z82.3 Family history of stroke; Z83.3 Family history of diabetes mellitus; Z91.199 Patient's noncompliance with other medical treatment and regimen due to unspecified reason
CPT/HCPCS: 36415; 36430; 71045; 74181; 76705; 78582; 80048; 80053; 80061; 82270; 82728; 83540; 83550; 83605; 83690; 83735; 83880; 84443; 84484; 85014; 85018; 85025; 85379; 85610; 85730; 86141; 86301; 86803; 86850; 86900; 86901; 86920; 87040; 87081; 87340; 87426; 87804; 90935; 93005; 93306; 93970; 94640; 96365; 96375; 99291; C9113; G0378; G9035; J1642; J2405

== ENCOUNTER 2023-11-30 18:43 | Emergency (ER) | payer OTHER, MEDICAID ==
[~2023-11-30] VITALS: Ht 170.2 cm; Wt 76.5 kg
[~2023-11-30 18:43] MED LIST changes: +CARV-217 PO; -CARV25TA PO; +LEVO500T91 PO; -LOSA100T13 PO; +LOSA100T14 PO; +SUCR1TAB PO
[2023-11-30 20:18] LABS: Basophils # (auto) 0.1 10 ^3/uL (0-0.2); Basophils % (auto) 1.1 % (0.0-2.0); Eosinophils # (auto) 0.2 10 ^3/uL (0-0.8); Eosinophils % (auto) 4.7 % (0.0-7.0); Hematocrit 37.8 % (41.0-53.0); Hemoglobin 12.1 g/dL (13.5-17.5); Lymphocytes % (auto) 18.5 % (10.0-50.0); Mean Corpuscular Hemoglobin 31.2 pg (28.0-32.0); Mean Corpuscular Volume 97.6 fL (80.0-100.0); Monocytes # (auto) 0.5 10 ^3/uL (0-1.3); Monocytes % (auto) 9.2 % (0.0-12.0); Neutrophils # (auto) 3.4 10 ^3/uL (1.6-8.6); Neutrophils % (auto) 66.5 % (37.0-80.0); Nucleated Red Blood Cells % 0.1 %; Red Blood Cells 3.87 10^6/uL (4.5-5.90); White Blood Cell 5.1 10^3/uL (4.4-10.8)
[2023-11-30 20:35] LABS: Albumin 4.7 g/dL (3.2-4.8); Alkaline Phosphatase 91 U/L (46-116); Anion Gap 11 (5-15); Aspartate Aminotransferase 13 U/L (13-40); BUN/Creatinine Ratio 4.6 (10.0-20.0); Blood Urea Nitrogen 48 mg/dL (9-23); Calcium 9.7 mg/dL (8.7-10.4); Carbon Dioxide 28 mmol/L (20-30); Chloride 98 mmol/L (98-107); Glucose 102 mg/dL (74-106); Magnesium 2.2 mg/dL (1.6-2.6); Potassium 5.1 mmol/L (3.5-5.1); Sodium 137 mmol/L (136-145)
[2023-11-30 20:36] LABS: Bilirubin, Total 0.2 mg/dL (0.2-1.0); Phosphorus 6.8 mg/dL (2.4-5.1); Total Protein 7.4 g/dL (5.7-8.2)
[2023-11-30 21:02] LABS: Alanine Aminotransferase < 9 U/L (7-40)
[2023-11-30 21:46] VITALS: BP 105/74; TEMP 98.2
[2023-11-30 22:46] LABS: Urine Blood 3+ /uL (Negative); Urine Clarity Ex.Turbid (Clear); Urine Protein, UAD 1+ (Negative); Urine Urobilinogen Normal (Negative)
[2023-11-30 22:50] VITALS: PULSE 65; RESP 16; O2SAT 100
[2023-11-30 22:59] LABS: Urine Color Red (Yellow)
[2023-11-30 23:00] LABS: Urine pH 7.5 (5.0-9.0)
== END 2023-11-30 23:35 | disposition home or self-care (01) ==
LOC: ER 18:43
DX: I12.0 Hypertensive chronic kidney disease with stage 5 chronic kidney disease or end stage renal disease (principal); N18.6 End stage renal disease; R51.9 Headache, unspecified; Z88.6 Allergy status to analgesic agent
CPT/HCPCS: 36415; 70450; 71046; 76642; 80053; 81003; 82962; 83735; 84100; 84484; 85025; 93005

== ENCOUNTER 2023-12-14 11:27 | Inpatient (IN) | payer OTHER, MEDICAID ==
[~2023-12-14] VITALS: Ht 165.1 cm; Wt 79.6 kg
[2023-12-14 12:00] VITALS: PULSE 66; RESP 13; O2SAT 93
[2023-12-14 12:04] LABS: Basophils # (auto) 0 10 ^3/uL (0-0.2); Eosinophils # (auto) 0.5 10 ^3/uL (0-0.8); Eosinophils % (auto) 12.8 % (0.0-7.0); Hematocrit 30.1 % (41.0-53.0); Hemoglobin 9.7 g/dL (13.5-17.5); Lymphocytes # (auto) 0.7 10 ^3/uL (0.4-5.4); Lymphocytes % (auto) 18.5 % (10.0-50.0); Mean Corpuscular Hemoglobin 31.5 pg (28.0-32.0); Mean Corpuscular Hgb Conc. 32.3 g/dL (32.0-36.0); Mean Corpuscular Volume 97.3 fL (80.0-100.0); Monocytes # (auto) 0.4 10 ^3/uL (0-1.3); Monocytes % (auto) 10.7 % (0.0-12.0); Neutrophils # (auto) 2.2 10 ^3/uL (1.6-8.6); Red Blood Cells 3.09 10^6/uL (4.5-5.90); Red Cell Distribution Width 14.7 % (11.8-14.3); White Blood Cell 3.9 10^3/uL (4.4-10.8)
[2023-12-14 12:16] LABS: Chloride 103 mmol/L (98-107); Potassium 4.9 mmol/L (3.5-5.1); Sodium 138 mmol/L (136-145)
[2023-12-14 12:17] LABS: Anion Gap 8 (5-15); Calcium 9.5 mg/dL (8.5-10.1); Carbon Dioxide 27 mmol/L (20-30)
[2023-12-14 12:22] LABS: BUN/Creatinine Ratio 4.7 (10.0-20.0); Blood Urea Nitrogen 65 mg/dL (9-23); Glucose 107 mg/dL (74-106)
[2023-12-14] MEDS ORDERED: NITROGLYCERIN 0.4 MG SL TAB SL PRN (13:30)
[2023-12-14] MEDS ORDERED: SENNA 8.6 MG TAB PO PRN (13:45)
[2023-12-14] MEDS: LANTHANUM CARBONATE 1000 MG PO SCH (14:00)
[2023-12-14] MEDS ORDERED: MORPHINE SULFATE 4 MG/ML SYR/VIAL IV PRN (14:00)
[2023-12-14] MEDS: SODIUM CHL 0.9% 1000 ML BAG XX ONE (17:11)
[2023-12-14] MEDS: MIRTAZAPINE 30 MG TAB PO SCH (18:26)
[2023-12-14] MEDS: SUCRALFATE 1 GM TAB PO SCH (18:27)
[2023-12-14 20:00] VITALS: PULSE 86; RESP 17; O2SAT 95
[2023-12-14] MEDS: CARVEDILOL 12.5 MG TAB PO SCH (22:35)
[2023-12-14] MEDS: hydrALAZINE HCL 25 MG TAB PO SCH (22:35)
[2023-12-14 23:25] VITALS: BP 113/92; PULSE 88; RESP 19; TEMP 98.1; O2SAT 96
[2023-12-14] MEDS: ACETAMINOPHEN 325 MG TAB PO PRN (23:59)
[2023-12-15 01:00] VITALS: BP 113/92; PULSE 88; RESP 19; TEMP 98.1; O2SAT 96
[2023-12-15 05:00] VITALS: BP 120/77; PULSE 82; RESP 19; TEMP 97.9; O2SAT 95
[2023-12-15] MEDS: SEVELAMER 800 MG TAB PO SCH (05:23)
[2023-12-15 06:24] LABS: Basophils # (auto) 0.1 10 ^3/uL (0-0.2); Basophils % (auto) 1.6 % (0.0-2.0); Eosinophils # (auto) 0.5 10 ^3/uL (0-0.8); Eosinophils % (auto) 12.3 % (0.0-7.0); Hematocrit 34.3 % (41.0-53.0); Hemoglobin 10.9 g/dL (13.5-17.5); Lymphocytes # (auto) 0.8 10 ^3/uL (0.4-5.4); Lymphocytes % (auto) 19.3 % (10.0-50.0); Mean Corpuscular Hemoglobin 30.8 pg (28.0-32.0); Mean Corpuscular Hgb Conc. 31.7 g/dL (32.0-36.0); Mean Corpuscular Volume 97.1 fL (80.0-100.0); Monocytes # (auto) 0.5 10 ^3/uL (0-1.3); Monocytes % (auto) 11.9 % (0.0-12.0); Neutrophils # (auto) 2.4 10 ^3/uL (1.6-8.6); Neutrophils % (auto) 54.9 % (37.0-80.0); Nucleated Red Blood Cells % 0.1 %; Red Blood Cells 3.53 10^6/uL (4.5-5.90); Red Cell Distribution Width 14.2 % (11.8-14.3); White Blood Cell 4.4 10^3/uL (4.4-10.8)
[2023-12-15 06:49] LABS: Alanine Aminotransferase 12 U/L (7-40); Albumin 3.9 g/dL (3.2-4.8); Alkaline Phosphatase 75 U/L (46-116); Anion Gap 7 (5-15); Aspartate Aminotransferase 12 U/L (13-40); BUN/Creatinine Ratio 3.9 (10.0-20.0); Bilirubin, Total 0.3 mg/dL (0.2-1.0); Carbon Dioxide 30 mmol/L (20-30); Chloride 101 mmol/L (98-107); Glucose 95 mg/dL (74-106); Potassium 4.5 mmol/L (3.5-5.1); Sodium 138 mmol/L (136-145); Total Protein 6.1 g/dL (5.7-8.2)
[2023-12-15 06:56] LABS: Blood Urea Nitrogen 44 mg/dL (9-23)
[2023-12-15 08:00] VITALS: PULSE 96; RESP 18
[2023-12-15 09:00] VITALS: BP 122/104; PULSE 96; RESP 18; TEMP 98; O2SAT 96
[2023-12-15] MEDS: ENOXAPARIN SOD 30 MG/0.3 ML SYRINGE SC SCH (10:00)
[2023-12-15] MEDS: TERAZOSIN HCL 5 MG CAP PO SCH (10:36)
[2023-12-15] MEDS: LOSARTAN POTASSIUM 50 MG TAB PO SCH (10:36)
[2023-12-15] MEDS: NIFEdipine ER 30 MG TAB PO SCH (10:46)
[2023-12-15 20:00] VITALS: BP 148/82; RESP 18; TEMP 98.3; O2SAT 98
[2023-12-16 01:00] VITALS: BP 108/56; PULSE 111; RESP 18; TEMP 98.1; O2SAT 96
[2023-12-16 05:00] VITALS: BP 131/74; PULSE 96; RESP 18; TEMP 98; O2SAT 96
[2023-12-16 08:00] VITALS: PULSE 88; PULSE 89
[2023-12-16] MEDS ORDERED: MUPI2CRE17 EX (09:26)
[2023-12-16 12:10] VITALS: BP 172/86; PULSE 84; RESP 17; TEMP 98.4; O2SAT 95
[2023-12-16 13:05] VITALS: BP 172/86; PULSE 84; RESP 17; TEMP 98.4; O2SAT 95
[2023-12-16 16:35] VITALS: BP 165/102; PULSE 89; RESP 16; TEMP 98.4; O2SAT 96
== END 2023-12-16 21:32 | disposition home or self-care (01) | DRG 291 ==
LOC: EDBD 11:27 → ER 11:27 → TELE-EAST 13:36 → TELE 13:36 → TELE-EAST 23:16
PROVIDERS: ADMIT Nurse Practitioner Family; ATTEND Family Medicine
PROC: 5A1D70Z Performance of Urinary Filtration, Intermittent, Less than 6 Hours Per Day (ICD-10-PCS; principal; 2023-12-14)
PROC: 5A1D70Z Performance of Urinary Filtration, Intermittent, Less than 6 Hours Per Day (ICD-10-PCS; 2023-12-16)
DX: I13.2 Hypertensive heart and chronic kidney disease with heart failure and with stage 5 chronic kidney disease, or end stage renal disease (principal); G93.41 Metabolic encephalopathy; N18.6 End stage renal disease; D63.1 Anemia in chronic kidney disease; I50.9 Heart failure, unspecified; N40.0 Benign prostatic hyperplasia without lower urinary tract symptoms; F32.A Depression, unspecified; Z99.2 Dependence on renal dialysis; Z88.8 Allergy status to other drugs, medicaments and biological substances; Z80.3 Family history of malignant neoplasm of breast; Z82.3 Family history of stroke; Z82.49 Family history of ischemic heart disease and other diseases of the circulatory system; Z83.3 Family history of diabetes mellitus; Z87.891 Personal history of nicotine dependence
CPT/HCPCS: 36415; 71045; 80048; 80053; 83605; 85025; 87040; 87081; 90935; G0378

== ENCOUNTER → 2024-03-11 | Outpatient (CLI) | payer OTHER, MEDICAID ==
[~2024-03-11] MED LIST changes: +MUPI2CRE17 EX
== END | disposition home or self-care (01) ==
LOC: XYW 12:08
PROVIDERS: ATTEND Student in an Organized Health Care Education/Training Program
DX: I51.7 Cardiomegaly (principal); I51.89 Other ill-defined heart diseases; J90 Pleural effusion, not elsewhere classified; I50.22 Chronic systolic (congestive) heart failure
CPT/HCPCS: 93306